=== PATIENT | female | born 1950 | race African-American/Black ===

== ENCOUNTER 2016-09-22 05:55 | Inpatient (IN) | payer MEDICARE ==
[~2016-09-22] VITALS: Ht 167.6 cm; Wt 84.2 kg
[2016-09-22] VITALS (17 sets, daily range): BP systolic 147–248; BP diastolic 95–137; PULSE 80–123; RESP 16–20; TEMP 98.2–100.4; O2SAT 94–99
[2016-09-22] MEDS ORDERED: ASPI81TA19 (06:07)
[2016-09-22] MEDS ORDERED: LABETALOL HCL 100 MG/20 ML VIAL IV PUSH ONE (06:15)
[2016-09-22] MEDS ORDERED: SODIUM CHLOR 0.9% 1000 ML INJ 1,000 ML IV SCH (06:15)
--- NOTE | 2016-09-22 06:26 | PD ---
HPI Chief Complaint: Chest Pain Time Seen by Provider: 06:03 Travel History International Travel<30 days: No Contact w/Intl Traveler<30days: No Traveled to known affect area: No History of Present Illness HPI 65-year-old female complains of chest pain. Patient states that the chest pain started 2 days ago. Patient states that the pain is pressure pain across the anterior chest with radiation to left arm. Patient states the pain is worse with lying down and exertion. Patient denies any fever chills coughing congestion. Patient denies any nausea or diaphoresis. Patient denies any palpitation. Patient has history of CAD status post CABG 3 about 8 years ago. Patient denies history hypertension, diabetes, dyslipidemia. Patient is a nonsmoker. Patient denies family history of heart disease. Patient take aspirin 325 mg daily. Patient states that she is does not have local physician or local rn practitioner. On a scale of 1-10 the pain is an 8. PFSH Past Medical History Chest Pain: Yes Diminished Hearing: No Tetanus Vaccination: Unknown Influenza Vaccination: No Past Surgical History Coronary Artery Bypass Graft: Yes ("TRIPLE BYPASS") Social History Alcohol Use: No Tobacco Use: No Substance Use: No Allergies-Medications (Allergen,Severity, Reaction): Coded Allergies: No Known Allergies (Unverified , 09/22/16) Reported Meds & Prescriptions Reported Meds & Active Scripts Active Reported Aspir-Low (Aspirin) 81 Mg Tabdr Review of Systems General / Constitutional: No: Fever Eyes: No: Visual changes HENT: No: Headaches Cardiovascular: Positive: Chest Pain or Discomfort Respiratory: No: Shortness of Breath Gastrointestinal: No: Abdominal Pain Genitourinary: No: Dysuria Musculoskeletal: No: Pain Skin: No Rash Neurologic: No: Weakness Psychiatric: No: Depression Endocrine: No: Polydipsia Hematologic/Lymphatic: No: Easy Bruising Physical Exam Narrative GENERAL: Well-nourished, well-developed patient. SKIN: Warm and dry. HEAD: Normocephalic. EYES: No scleral icterus. No injection or drainage. NECK: Supple, trachea midline. No JVD or lymphadenopathy. CARDIOVASCULAR: Regular rate and rhythm without murmurs, gallops, or rubs. RESPIRATORY: Breath sounds equal bilaterally. No accessory muscle use. GASTROINTESTINAL: Abdomen soft, non-tender, nondistended. MUSCULOSKELETAL: No cyanosis, or edema. BACK: Nontender without obvious deformity. No CVA tenderness. Neurologic exam normal. Data Data Last Documented VS Vital Signs Date Time Temp Pulse Resp B/P Pulse Ox O2 Delivery O2 Flow Rate FiO2 09/22/16 06:08 111 16 98 Room Air 09/22/16 05:57 98.2 248/137 Orders Electrocardiogram (09/22/16 06:13) Complete Blood Count With Diff (09/22/16 06:13) Comprehensive Metabolic Panel (09/22/16 06:13) Creatine Kinase (Cpk) (09/22/16 06:13) Troponin I (09/22/16 06:13) B-Type Natriuretic Peptide (09/22/16 06:13) Prothrombin Time / Inr (Pt) (09/22/16 06:13) Act Partial Throm Time (Ptt) (09/22/16 06:13) D-Dimer (09/22/16 06:13) Chest, Single Ap (09/22/16 06:13) Iv Access Insert/Monitor (09/22/16 06:13) Ecg Monitoring (09/22/16 06:13) Oximetry (09/22/16 06:13) Sodium Chlor 0.9% 1000 Ml Inj (Ns 1000 M (09/22/16 06:15) Labetalol Inj (Trandate Inj) (09/22/16 06:15) Aspirin (Aspirin) (09/22/16 06:30) Ct Pulmonary Angiogram (09/22/16:17) MDM Medical Decision Making Medical Screen Exam Complete: Yes Emergency Medical Condition: Yes Interpretation(s) EKG shows sinus rhythm nonspecific ST-T wave change. Differential Diagnosis Differential diagnosis including angina, NV, PE, pneumothorax, new onset hypertension, hypertensive urgency, hypertensive crisis. Narrative Course 65-year-old female chest pain. Patient also has elevated blood pressure. Labetalol 10 mg IV given. Aspirin 325 mg by mouth given. Neno Suarez MD Sep 22, 2016 06:26
[2016-09-22] MEDS ORDERED: ASPIRIN 325 MG TAB PO ONE (06:30)
[2016-09-22] MEDS ORDERED: hydrALAZINE HCL 20 MG/ML VIAL ONE ×2 (06:39→10:30)
[2016-09-22] MEDS ORDERED: hydrALAZINE HCL 20 MG/ML VIAL IV PUSH ONE (06:45)
[2016-09-22 06:52] LABS: AUTOMATED NEUTROPHIL # 2.8 TH/MM3 (1.8-7.7); BASOPHIL # 0.1 TH/MM3 (0-0.2); BASOPHIL % 1.4 % (0.0-2.0); EOSINOPHIL # 0.2 TH/MM3 (0-0.4); EOSINOPHIL % 4.5 % (0.0-4.0); HEMATOCRIT 38.7 % (35.0-46.0); HEMO FLAGS DIFF FINAL; LYMPH % 32.1 % (9.0-44.0); LYMPHOCYTE # 1.7 TH/MM3 (1.0-4.8); MEAN CELL VOLUME 90.1 FL (80.0-100.0); MEAN CORPUSCULAR HGB CONC 32.2 % (32.0-36.0); PLATELET COUNT 311 TH/MM3 (150-450); RED CELL DISTRIBUTION WIDTH 14.5 % (11.6-17.2); WHITE BLOOD COUNT 5.4 TH/MM3 (4.0-11.0)
[2016-09-22 07:06] LABS: APTT (PATIENT) 26.4 SEC (24.3-30.1); PROTHROMBIN TIME - PATIENT 10.9 SEC (9.8-11.6)
[2016-09-22 07:07] LABS: ALT (GPT) 102 U/L (10-53); ANION GAP 11 MEQ/L (5-15); AST (GOT) 51 U/L (15-37); BICARBONATE 23.2 MEQ/L (21.0-32.0); BLOOD UREA NITROGEN 21 MG/DL (7-18); CHLORIDE 107 MEQ/L (98-107); GLOMERULAR FILTRATION RATE 47 ML/MIN (>89); POTASSIUM 4.1 MEQ/L (3.5-5.1); SODIUM (NA) 141 MEQ/L (136-145)
[2016-09-22 07:11] LABS: ALKALINE PHOSPHATASE 115 U/L (45-117); CREATINE KINASE 160 U/L (26-192); TOTAL BILIRUBIN ADULT 0.7 MG/DL (0.2-1.0)
--- NOTE | 2016-09-22 07:14 | RADRPT ---
EXAM DATE/TIME: 09/22/2016 06:31 [facility] COMPARISON: No previous studies available for comparison. INDICATIONS : Chest pain. MEDICAL HISTORY : Hypertension. SURGICAL HISTORY : CABG. ENCOUNTER: Initial ACUITY: 1 day PAIN SCORE: 6/10 LOCATION: Bilateral chest FINDINGS: A single view of the chest demonstrates linear densities left midlung the left lung base. Moderate ca rdiomegaly with previous median sternotomy. Right lung clear.. The cardiomediastinal contours are un remarkable. Osseous structures are intact. CONCLUSION: 1. Left midlung and left basilar subsegmental atelectasis. 2. Cardiomegaly and previous median sternotomy. Wes Cherry MD on September 22, 2016 at 7:12 Board Certified Radiologist. This report was verified electronically.
[2016-09-22] MEDS ORDERED: SODIUM CHLORID 0.9% 500 ML INJ 500 ML IV ONE (07:30)
[2016-09-22] MEDS ORDERED: HEPARIN-D5W INJ 250 ML IV SCH (07:45)
[2016-09-22] MEDS ORDERED: HEPARIN SODIUM - IV 10,000 UNITS/10 ML VIAL IV ONE (07:45)
[2016-09-22] MEDS ORDERED: MORPHINE SULFATE 4 MG/ML INJ IV PUSH ONE ×2 (07:45→08:15)
[2016-09-22] MEDS: NITROGLYCERIN-DEXTROSE INJ 250 ML IV SCH (07:51)
--- NOTE | 2016-09-22 08:12 | PD ---
Physical Exam Date Seen by Provider: Sep 22, 2016 Time Seen by Provider: 08:12 Narrative 65-year-old female came to the emergency room with history of left-sided chest pain radiating up to her neck and shortness of breath. She was seen by the previous ER physician. EKG did not reveal any ST elevations. Blood test was ordered and patient was given morphine for pain. The sign out was to follow-up on the blood tests. There was a d-dimer ordered which was elevated and hence a CT pulmonary angiogram was ordered as well. Blood test results came back and patient had some renal insufficiency but more importantly her troponin was 9.59. I went back and reassessed the patient. At this point she was looking uncomfortable and said her chest pain was 15 out of 10. She had to stay sitting up because laying down and made her short of breath. Her blood pressure was 205 systolic. I ordered nitroglycerin drip, heparin bolus and drip and 4 mg of IV morphine. I also ordered a stat bedside echo and spoke with the diesel automotive technician Dr. Wlilis. A repeat EKG was ordered which showed old Q waves in the anterior leads with new inverted T waves in lateral leads. There was LVH. The bedside echocardiogram has an EF of 20-25%. The diesel automotive technician plans to take her to the [facility]. Patient's current pain is 0 out of 10 she said. She says her breathing feels better. I will cancel the CT pulmonary angiogram. Patient has been admitted to the hospitalist. Current blood pressure is 177/96. She's been admitted to CICU. Data Data Last Documented VS Orders Electrocardiogram (09/22/16 06:13) Complete Blood Count With Diff (09/22/16 06:13) Comprehensive Metabolic Panel (09/22/16 06:13) Creatine Kinase (Cpk) (09/22/16 06:13) Troponin I (09/22/16 06:13) B-Type Natriuretic Peptide (09/22/16 06:13) Prothrombin Time / Inr (Pt) (09/22/16 06:13) Act Partial Throm Time (Ptt) (09/22/16 06:13) D-Dimer (09/22/16 06:13) Chest, Single Ap (09/22/16 06:13) Iv Access Insert/Monitor (09/22/16 06:13) Ecg Monitoring (09/22/16 06:13) Oximetry (09/22/16 06:13) Sodium Chlor 0.9% 1000 Ml Inj (Ns 1000 M (09/22/16 06:15) Labetalol Inj (Trandate Inj) (09/22/16 06:15) Aspirin (Aspirin) (09/22/16 06:30) Hydralazine Inj (Apresoline Inj) (09/22/16 06:45) Hydralazine Inj (Apresoline Inj) (09/22/16 06:39) Sodium Chlorid 0.9% 500 Ml Inj (Ns 500 M (09/22/16 07:30) Nitroglycerin-Dextrose Inj (Nitroglyceri (09/22/16 07:45) Nitroglycerin-Dextrose Inj (Nitroglyceri (09/22/16 07:45) Heparin Infusion DURATE.Q1H (09/22/16 07:32) Heparin Inj (Heparin Inj) (09/22/16 07:45) Heparin-D5w Inj (Heparin-D5w Inj) (09/22/16 07:45) Act Partial Throm Time (Ptt) (09/22/16 14:32) Morphine Inj (Morphine Inj) (09/22/16 07:45) Echo 2d Comp W/Dopp(Routine) (09/22/16 ) Admit Order (Ed Use Only) (09/22/16 08:03) Labs MDM Supervised Visit with NUZHAT: No Interpretation(s) Second twelve-lead EKG was interpreted by me. Normal sinus rhythm, normal axis , LVH, old anterior SC, poor R-wave progression, new inverted T waves in V5 and V6. Heart rate of 85 bpm. Critical Care Narrative Aggregate critical care time was 60 minutes. Time to perform other separately billable procedures was not included in the critical care time. My time did not include minutes spent treating any other patients simultaneously or on activities that did not directly contribute to the patient's treatment. The services I provided to this patient were to treat and/or prevent clinically significant deterioration that could result in: Non-STEMI, hypertensive crisis, nitro drip, heparin drip I provided critical care services requiring my management, as noted below: Chart data review, documentation time, medication orders and management, vital sign assessments/reviewing monitor data, ordering and reviewing lab tests, ordering and interpreting/reviewing x-rays and diagnostic studies, care of the patient and discussion of the patient with the admitting physicians. Physician Communication Physician Communication Dr. Willis Diagnosis Primary Impression: Non-STEMI (non-ST elevated myocardial infarction) Additional Impressions: Hypertensive emergency Respiratory distress Admitting Information Admitting Physician Requests: Admit Scripts Lisinopril 10 Mg Tab10 Mg PO DAILY #30 TAB Ref 0 Prov:Ganesh Weinberg MD 09/26/16 Levofloxacin (Levaquin)500 Mg Htq622 Mg PO Q48H #4 TAB Ref 0 Prov:Ganesh Weinberg MD 09/25/16 Ticagrelor (Brilinta)90 Mg Tab90 Mg PO BID #62 TAB Ref 1 Prov:Ganesh Weinberg MD 09/25/16 Furosemide 20 Mg Tab20 Mg PO DAILY #30 TAB Prov:Ganesh Weinberg MD 09/25/16 Carvedilol (Coreg)12.5 Mg Tab12.5 Mg PO Q12HR #62 TAB Prov:Ganesh Weinberg MD 09/25/16 [Aspirin] (Aspirin Chew)81 MG CHEW No Conflict Check81 Mg CHEW DAILY #30 TAB.CHEW Prov:Ganesh Weinberg MD 09/25/16 Amlodipine (Norvasc)10 Mg Tab10 Mg PO DAILY #30 TAB Prov:Ganesh Weinberg MD 09/25/16 Giovanni Ramirez MD Sep 22, 2016 08:12 Lymphocytes # (Auto) 1.7 TH/MM3 Monocytes # (Auto) 0.5 TH/MM3 Eosinophils # (Auto) 0.2 TH/MM3 Basophils # (Auto) 0.1 TH/MM3 CBC Comment DIFF FINAL Differential Comment Prothrombin Time 10.9 SEC Prothromb Time International 1.0 RATIO Ratio Activated Partial 26.4 SEC Thromboplast Time D-Dimer Quantitative (PE/DVT) 1.48 MG/L FEU Sodium Level 141 MEQ/L Potassium Level 4.1 MEQ/L Chloride Level 107 MEQ/L Carbon Dioxide Level 23.2 MEQ/L Anion Gap 11 MEQ/L Blood Urea Nitrogen 21 MG/DL Creatinine 1.37 MG/DL Estimat Glomerular Filtration 47 ML/MIN Rate Random Glucose 165 MG/DL Calcium Level 9.4 MG/DL Total Bilirubin 0.7 MG/DL Aspartate Amino Transf 51 U/L (AST/SGOT) Alanine Aminotransferase 102 U/L (ALT/SGPT) Alkaline Phosphatase 115 U/L Total Creatine Kinase 160 U/L Troponin I 9.59 NG/ML B-Type Natriuretic Peptide 1430 PG/ML Total Protein 7.6 GM/DL Albumin 3.8 GM/DL [facility] Supervised Visit with NUZHAT: No Interpretation(s) Second twelve-lead EKG was interpreted by me. Normal sinus rhythm, normal axis , LVH, old anterior SC, poor R-wave progression, new inverted T waves in V5 and V6. Heart rate of 85 bpm. Critical Care Narrative Aggregate critical care time was 60 minutes. Time to perform other separately billable procedures was not included in the critical care time. My time did not include minutes spent treating any other patients simultaneously or on activities that did not directly contribute to the patient's treatment. The services I provided to this patient were to treat and/or prevent clinically significant deterioration that could result in: Non-STEMI, hypertensive crisis, nitro drip, heparin drip I provided critical care services requiring my management, as noted below: Chart data review, documentation time, medication orders and management, vital sign assessments/reviewing monitor data, ordering and reviewing lab tests, ordering and interpreting/reviewing x-rays and diagnostic studies, care of the patient and discussion of the patient with the admitting physicians. Physician Communication Physician Communication Dr. Willis Diagnosis Primary Impression: Non-STEMI (non-ST elevated myocardial infarction) Additional Impressions: Hypertensive emergency Respiratory distress Admitting Information Admitting Physician Requests: it Giovanni Ramirez MD Sep 22, 2016 08:12
[2016-09-22] MEDS: LISINOPRIL 5 MG TAB PO SCH (09:30)
[2016-09-22] MEDS ORDERED: ACETAMINOPHEN 325 MG TAB PO PRN (09:30)
[2016-09-22] MEDS ORDERED: ALPRAZolam 0.25 MG TAB PO PRN (09:30)
[2016-09-22] MEDS ORDERED: MORPHINE SULFATE 4 MG/ML INJ IV PRN (09:30)
[2016-09-22] MEDS ORDERED: DOCUSATE SODIUM 100 MG CAP PO PRN (09:30)
[2016-09-22] MEDS ORDERED: SODIUM CHLORIDE 0.9% FLUSH 10 ML FLUSH IV FLUSH PRN ×2 (09:30→12:15)
[2016-09-22] MEDS ORDERED: ONDANSETRON HCL 4 MG/2 ML VIAL IV PRN ×2 (09:30→12:15)
[2016-09-22] MEDS ORDERED: CARVEDILOL 3.125 MG TAB PO SCH (09:30)
--- NOTE | 2016-09-22 09:38 | EC ---
Study Study Date:09/22/2016 STUDY CONCLUSIONS SUMMARY - Left ventricle: The cavity size was normal. Wall thickness was increased in a pattern of moderate LVH. There was concentric hypertrophy. Systolic function was severely reduced. The estimated ejection fraction was in the range of 30% to 35%. Diffuse hypokinesis. Akinesis of the anteroseptal myocardium; consistent with infarction. Features are consistent with a pseudonormal left ventricular filling pattern, with concomitant abnormal relaxation and increased filling pressure (grade 2 diastolic dysfunction). - Aortic valve: Mild regurgitation. - Mitral valve: Moderate regurgitation. - Tricuspid valve: Moderate-severe regurgitation. - Pulmonary arteries: PA peak pressure: 43mm Hg (S). If LV function is below 40, please consider prescribing an ACEI or ARB or document rationale for non-use. PROCEDURE DATA STUDY STATUS: Elective. Procedure: Transthoracic echocardiography. Image quality was good. Scanning was performed from the parasternal, apical, and subcostal acoustic windows. Study completion: The patient tolerated the procedure well. Transthoracic echocardiography. M-mode, complete 2D, complete spectral Doppler, and color Doppler. Height: Height: 66in. Weight: Weight: 197.6lb. Body mass index: BMI: 32kg/m^2. Body surface area: BSA: 1.99m^2. Patient status: Inpatient. CARDIAC ANATOMY LEFT VENTRICLE: The cavity size was normal. Wall thickness was increased in a pattern of moderate LVH. There was concentric hypertrophy. Systolic function was severely reduced. The estimated ejection fraction was in the range of 30% to 35%. Diffuse hypokinesis. Regional wall motion abnormalities: Akinesis of the anteroseptal myocardium; consistent with infarction. Features are consistent with a pseudonormal left ventricular filling pattern, with concomitant abnormal relaxation and increased filling pressure (grade 2 diastolic dysfunction). AORTIC VALVE: Trileaflet. Doppler: There was no stenosis. Mild regurgitation. Valve area: 2.02cm^2 (Vmax). Indexed valve area: 1.02cm^2/m^2 (Vmax). MITRAL VALVE: The valve appears to be grossly normal. Doppler: There was no evidence for stenosis. Moderate regurgitation. Valve area by pressure half-time: 4.78cm^2. Indexed valve area by pressure half-time: 2.4cm^2/m^2. Peak gradient: 5mm Hg (D). LEFT ATRIUM: The atrium was mildly to moderately dilated. RIGHT VENTRICLE: The cavity size was normal. Systolic function was normal. PULMONIC VALVE: Not well visualized. Doppler: There was no evidence for stenosis. No significant regurgitation. TRICUSPID VALVE: The valve appears to be grossly normal. Doppler: There was no evidence for stenosis. Moderate-severe regurgitation. Peak gradient: 0mm Hg (D). RIGHT ATRIUM: The atrium was mildly dilated. PERICARDIUM: There was no pericardial effusion. Patient weight: 197.6lb _Ejection fraction:_ 65-75% _Fractional shortening:_ 32% up to 5Kg 5-11.5Kg 11.6-22.9Kg 23-45Kg 45-57Kg Aortic Root 7-13 <17 13-22 17-27 17-27 LA diam 6-13 <23 24-38 33-47 37-40 RVID 10-17 7-15 7-15 7-18 8-17 LVIDd 12-22 <32 24-38 33-47 37-40 LVPW 2-4 3-6 5-7 6-8 7-8 IVS 2-4 3-6 5-7 6-8 7-8 BASIC MEASUREMENTS ADULT NORMAL Left ventricle LV internal dimension, ED, chordal 43.7 mm 43-52 level, PLAX LV internal dimension, ES, chordal 36.8 mm 23-38 level, PLAX Fractional shortening, chordal level, *16 % >29 PLAX LV posterior wall thickness, ED 16.9 mm IVS/LVPW ratio, ED 0.99 <1.3 Volume, ED, MOD, 1-plane 97 ml Volume, ES, MOD, 1-plane 65 ml Ejection fraction, MOD, 1-plane 33 % Stroke volume, MOD, 1-plane 32 ml Volume index, ED, MOD, 1-plane 49 ml/m^2 Volume index, ES, MOD, 1-plane 33 ml/m^2 Stroke index, MOD, 1-plane 16.1 ml/m^2 Ventricular septum Septal thickness, ED 16.7 mm Aortic valve Leaflet separation 18 mm 15-26 Aorta Root diameter, ED 28 mm Left atrium Anterior-posterior dimension 45 mm Anterior-posterior dimension index *2.26 cm/m^2 <2.2 Right ventricle RV internal dimension, ED, PLAX 32.3 mm 19-38 BASIC MEASUREMENTS ADULT NORMAL Aortic valve Leaflet separation 18 mm 15-26 Aorta Root diameter, ED 28 mm 20-37 DOPPLER MEASUREMENTS ADULT NORMAL Main pulmonary artery Pressure, S *43 mm Hg =30 Aortic valve Peak velocity, S 139 cm/s Valve area, Vmax 2.02 cm^2 Valve area index, Vmax 1.02 cm^2/m^2 Regurgitant velocity, ED 445 cm/s Regurgitant deceleration 4550 cm/s^2 Regurgitant pressure half-time 287 ms Regurgitant gradient, ED 79 mm Hg Mitral valve Peak E-wave velocity 117 cm/s Peak A-wave velocity 73.1 cm/s Pressure half-time 46 ms Peak gradient, D 5 mm Hg Peak E/A ratio 1.6 Valve area, pressure half-time 4.78 cm^2 Valve area index, pressure half-time 2.4 cm^2/m^2 Tricuspid valve Peak gradient, D 0 mm Hg Maximal inflow velocity 13.6 cm/s Regurgitant peak velocity 238 cm/s Peak RV-RA gradient, S 23 mm Hg Maximal regurgitant velocity 238 cm/s Systemic veins Estimated CVP 20 mm Hg Right ventricle RV pressure, S *43 mm Hg <30 Pulmonic valve Peak velocity, S 59.7 cm/s LEGEND: Mean values are shown as u=mean value. Asterisk (*) gonzalez values outside specified normal range. Prepared and signed by Yohan Willis [id number]
[2016-09-22] MEDS ORDERED: LABETALOL HCL 100 MG/20 ML VIAL IVP ONE (09:45)
[2016-09-22] MEDS ORDERED: ONDANSETRON HCL 4 MG/2 ML VIAL ONE (09:46)
[2016-09-22] MEDS ORDERED: HEPARIN-NS/PF INJ 500 ML ONE (09:48)
--- NOTE | 2016-09-22 09:50 | MB ---
cc: ARCHIE DICKINSON DO DATE OF CONSULTATION September 22, 2016 REASON FOR CONSULTATION NSTEMI. HISTORY OF PRESENT ILLNESS Antonieta Noble is a pleasant 65-year-old female who presents to [facility] Emergency Room on September 22, 2016, due to chest pain and shortness of breath. She states that around two days ago she started having some chest pain and shortness of breath. The shortness of breath seemed to come on with laying flat and then she would get chest pain. She went about her normal day working without chest pain. Then last night she started noticing that her shortness of breath was becoming more significant. With this she started getting pressure across her chest that radiated to her left arm and neck. She finally told her roommate this morning that she needed to go to the emergency room. On arrival she was found to have an elevated troponin. Chest pain was "15 out of 10". Her blood pressure at that time was 248/137. She was placed on a nitro drip, heparin drip and given morphine IV. After being placed on nitro, blood pressure decreased to 170/90 and she is currently chest pain-free. She also feels that her shortness of breath has decreased. The patient previously had bypass surgery around eight years ago at [facility]. She was never told to follow up with Cardiology. She has not followed up with a primary care physician at all. She states that her blood pressure has been elevated for sometime, but she felt that this did not need to be treated as she is asymptomatic from it. PAST MEDICAL HISTORY 1. Coronary artery disease. 2. Hypertension. PAST SURGICAL HISTORY Coronary artery bypass grafting x 3 (around 2008 at [facility]) with unknown anatomy. ALLERGIES No known drug allergies. MEDICATIONS Aspirin 81 mg daily. FAMILY HISTORY Denies premature coronary artery disease or sudden cardiac within the family. SOCIAL HISTORY Denies tobacco, alcohol or drug abuse. She works cleaning office buildings. REVIEW OF SYSTEMS Fourteen systems were reviewed including osteopathic pertinent positives and negatives above, otherwise negative. PHYSICAL EXAMINATION VITAL SIGNS: Temperature 98.2, heart rate 85, blood pressure 177/96, on arrival 248/137, respirations 18, pulse ox 97% on room air. IN GENERAL: The patient appears in no acute distress, alert, awake and oriented x 3. Extraocular muscles intact. Mucous membranes moist. NECK: Supple. No JVD at 45 degrees. No carotid bruits heard bilaterally. Carotid upstroke is brisk in nature. HEART: Regular in rate and rhythm. Positive first and second heart sounds with a 1/6 holosystolic murmur noted at the apex. LUNGS: Decreased breath sounds bilaterally with minimal rales. ABDOMEN: Soft, nontender, nondistended. No organomegaly noted. EXTREMITIES: No clubbing, cyanosis or edema. Femoral and distal pulses intact bilaterally. NEUROLOGICALLY: No focal deficits. SKIN: Warm, dry and intact. OSTEOPATHIC EXAM: Mild lordosis. No kyphoscoliosis or scoliosis or paraspinal tender points. LABORATORY WORK Hemoglobin 12.5, hematocrit 38.7, platelets 311. D-dimer 1.48. Potassium 4.1, BUN 21, creatinine 1.37, AST 51, ALT 102, troponin 9.59. BNP 1430. ELECTROCARDIOGRAM (September 22, 2016, at 06:08) Sinus tachycardia at 190 per minute, left atrial enlargement, LVH with secondary ST-T wave changes. IMPRESSION 1. NSTEMI. 2. Chest pain concerning for coronary insufficiency. 3. Coronary artery disease with a history of coronary artery bypass grafting x 3 (around [address] [facility]) with unknown anatomy. 4. Shortness of breath due to acute congestive heart failure. 5. Elevated creatinine, unknown baseline, acute kidney injury versus chronic kidney disease. 6. Elevated D-dimer 7. Elevated liver enzymes, most likely due to liver congestion from heart failure. 8. Emergent hypertension with a blood pressure of 248/137 on arrival. RECOMMENDATIONS 1. Antonieta appears to be having an acute NSTEMI with chest pain consistent with coronary insufficiency. Because of this, she will be taken to the cardiac catheterization lab urgently. She understands the risks, benefits and alternatives and consents as such. 2. We will continue her on a heparin drip as well as a nitroglycerin drip. 3. Postprocedure she will need to have better blood pressure can control. 4. Liver enzymes were most likely elevated due to liver congestion from heart failure. 5. A STAT echo was done preliminarily. Her ejection fraction looks 25-30%, moderate MR, moderate TR, trace AR. 6. D-dimer is mildly elevated. We will hold off on CT angiogram to rule out pulmonary embolus as the chest pain appears consistent with coronary insufficiency. STAT echo does not show dilatation of the right ventricle or decreased function. 7. Post-hospitalization, the patient will need to follow up with a primary care physician as well as Cardiology. 8. We will further risk stratify the patient by checking hemoglobin A1c. 9. Further recommendations will be made based on the hospital course. Thank you for allowing me to see Antonieta Noble. If there are any questions, please do not hesitate to call. Archie Dickinson DO VGP/SSB /9:12 AM /9:35 AM
[2016-09-22] MEDS ORDERED: MIDAZOLAM HCL 2 MG/2 ML VIAL ONE (09:55)
[2016-09-22] MEDS ORDERED: NITROGLYCERIN INJ 5 ML ONE (09:55)
[2016-09-22] MEDS ORDERED: HEPARIN SODIUM - IV 10,000 UNITS/10 ML VIAL ONE (09:55)
[2016-09-22] MEDS ORDERED: VERAPAMIL HCL 5 MG/2 ML VIAL ONE (09:55)
--- NOTE | 2016-09-22 10:13 | HHI.HP ---
HPI Service [facility] Hospitalists Primary Care Physician No Primary Care Physician Admission Diagnosis chest pain, non-STEMI Diagnoses: Chief Complaint: Chest pain, shortness of breath Travel History International Travel<30 Days: No Contact w/Intl Traveler <30 Da: No Traveled to Known Affected Are: No History of Present Illness This is a 65-year-old female with past medical history significant for CAD and a prior CABG approximately 9 years ago who presents to [facility] complaining of chest pain or shortness of breath. The patient states that this past Monday she started having some episodic and intermittent chest pain associated with shortness of breath which was self-limited. Next a she had some episodes of chest pain which lasted for 15-20 minutes 0 insurance of breath which also subsided on its own. The patient states however that this morning around 4 AM she started having chest pain localized over the left chest , nonradiating, associated with shortness of breath which did not go away somewhat she decided to present to the hospital. The patient denies any diaphoresis, dizziness, palpitations, abdominal pain, nausea. Patient states the pain was improved after she was given nitroglycerin. Moment obtained. The activity leader shows sinus rhythm and blood pressure is elevated with systolic blood pressures in the 190s. Patient is still complaining of mild chest pain and shortness of breath. Review of Systems As per history of present illness, other systems reviewed by me and negative Past Family Social History Past Medical History History of CAD with CABG 9 years ago Past Surgical History CABG, denies any other major surgeries Reported Medications Aspir-Low (Aspirin) 81 Mg Tabdr Allergies: Coded Allergies: No Known Allergies (Unverified , 09/22/16) Active Ordered Medications Current Medications Medications (Trade) Dose Ordered Sig/Belen Route Start Time Stop Time Status Last Admin Sodium Chloride 1,000 ml @ 70 mls/hr [id number] IV 09/22/16 06:15 09/22/16 06:27 Nitroglycerin/ Dextrose 250 ml @ 0 mls/hr TITRATE IV 09/22/16 07:45 09/22/16 07:51 Nitroglycerin/ Dextrose 250 ml @ 0 mls/hr TITRATE IV 09/22/16 07:45 (Heparin-D5W Inj) 250 ml @ 0 mls/hr TITRATE IV 09/22/16 07:45 09/22/16 07:58 (NS Flush) 2 ml BID IV FLUSH 09/22/16 21:00 (NS Flush) 2 ml UNSCH PRN IV FLUSH 09/22/16 09:30 (Ecotrin Ec) 325 mg DAILY PO 09/23/16 09:00 (Morphine Inj) 2 mg Q30M PRN IV 09/22/16 09:30 (Tylenol) 650 mg Q6H PRN PO 09/22/16 09:30 (Colace) 100 mg BID PRN PO 09/22/16 09:30 (Xanax) 0.25 mg Q8H PRN PO 09/22/16 09:30 (Zofran Inj) 4 mg Q6H PRN IV 09/22/16 09:30 (Coreg) 3.125 mg BID PO 09/22/16 09:30 UNV (Prinivil) 5 mg DAILY PO 09/22/16 09:30 UNV Labetalol HCl 20 mg 20 mg BOLUS ONCE IVP 09/22/16 09:45 09/22/16 09:46 UNV (Trandate Inj/NS Inj) 250 ml @ 0 mls/hr TITRATE IV 09/22/16 09:45 UNV Family History Patient denies family history of early CAD, hypertension or diabetes mellitus. Social History The patient is a former smoker, states she quit one year ago. She used to smoke 1 pack per month. The patient denies any alcohol intake. The patient denies any illicit drug use. The patient is a and has 4 children. 3 of them live in [place] and one lives in [place]. Physical Exam Vital Signs Vital Signs Date Time Temp Pulse Resp B/P Pulse Ox O2 Delivery O2 Flow Rate FiO2 09/22/16 09:00 86 18 204/95 98 Room Air 09/22/16 08:00 85 18 177/96 97 Room Air 09/22/16 07:56 18 09/22/16 07:30 85 18 191/115 97 Room Air 09/22/16 06:26 89 16 213/117 96 Room Air 09/22/16 06:25 20 96 Room Air 09/22/16 06:08 111 16 98 Room Air 09/22/16 05:57 98.2 123 16 248/137 99 Room Air Physical Exam GENERAL: This is a well-nourished, well-developed patient, in mild distress due to pain and shortness of breath. SKIN: No rashes, ecchymoses or lesions. Cool and dry. HEAD: Atraumatic. Normocephalic. No temporal or scalp tenderness. EYES: Pupils equal round and reactive. Extraocular motions intact. No scleral icterus. No injection or drainage. ENT: Nose without bleeding, purulent drainage or septal hematoma. Throat without erythema, tonsillar hypertrophy or exudate. Uvula midline. Airway patent. NECK: Trachea midline. No JVD or lymphadenopathy. Supple, nontender, no meningeal signs. CARDIOVASCULAR: Regular rate and rhythm without murmurs, gallops, or rubs. RESPIRATORY: Clear to auscultation. Breath sounds equal bilaterally. No wheezes , rales, or rhonchi. GASTROINTESTINAL: Abdomen soft, non-tender, nondistended. No hepato-splenomegaly , or palpable masses. No guarding. Obese. MUSCULOSKELETAL: Extremities without clubbing, cyanosis, edema +1 in lower extremities. No joint tenderness, effusion, or edema noted. No calf tenderness. Negative Homans sign bilaterally. NEUROLOGICAL: Awake and alert. Cranial nerves II through XII intact. Motor and sensory grossly within normal limits. Five out of 5 muscle strength in all muscle groups. Normal speech. Laboratory Laboratory Tests Test 09/22/16 06:20 White Blood Count 5.4 Red Blood Count 4.30 Hemoglobin 12.5 Hematocrit 38.7 Mean Corpuscular Volume 90.1 Mean Corpuscular Hemoglobin 29.0 Mean Corpuscular Hemoglobin 32.2 Concent Red Cell Distribution Width 14.5 Platelet Count 311 Mean Platelet Volume 7.5 Neutrophils (%) (Auto) 52.0 Lymphocytes (%) (Auto) 32.1 Monocytes (%) (Auto) 10.0 Eosinophils (%) (Auto) 4.5 Basophils (%) (Auto) 1.4 Neutrophils # (Auto) 2.8 Lymphocytes # (Auto) 1.7 Monocytes # (Auto) 0.5 Eosinophils # (Auto) 0.2 Basophils # (Auto) 0.1 CBC Comment DIFF FINAL Differential Comment Prothrombin Time 10.9 Prothromb Time International 1.0 Ratio Activated Partial 26.4 Thromboplast Time D-Dimer Quantitative (PE/DVT) 1.48 Sodium Level 141 Potassium Level 4.1 Chloride Level 107 Carbon Dioxide Level 23.2 Anion Gap 11 Blood Urea Nitrogen 21 Creatinine 1.37 Estimat Glomerular Filtration 47 Rate Random Glucose 165 Calcium Level 9.4 Total Bilirubin 0.7 Aspartate Amino Transf 51 (AST/SGOT) Alanine Aminotransferase 102 (ALT/SGPT) Alkaline Phosphatase 115 Total Creatine Kinase 160 Troponin I 9.59 B-Type Natriuretic Peptide 1430 Total Protein 7.6 Albumin 3.8 Result Diagram: 09/22/1661909/22/16619 Imaging Last Impressions Chest X-Ray 09/22/16612 Signed Impressions: Service Date/Time: August 06:31 - CONCLUSION: 1. Left midlung and left basilar subsegmental atelectasis. 2. Cardiomegaly and previous median sternotomy. Wes Cherry MD Assessment and Plan Problem List: (1) Non-STEMI (non-ST elevated myocardial infarction) ICD Code: I21.4 Status: Acute Plan: CC 5-year-old female who presents to [facility] complaining of chest pain or short of breath. Cardiac enzymes found to be elevated with a troponin of 9.59. EKG on presentation to the emergency department showed specific tachycardia with a ventricular rate of 109 bpm, signs consistent with left atrial enlargement, septal DC and ST depressions in leads V5 and V6. No clear ST elevation. Chest x-ray as described above and reviewed by me showed left midlung and left basilar subsegmental atelectasis. Cardiomegaly and previous median sternotomy. Admit the patient to the cardiac intermediate care unit Continue IV heparin and nitroglycerin started by the emergency department physician. Start the patient on lisinopril and carvedilol Cardiology consulted by ED physician. CTA rule out PE still pending (2) Hypertensive emergency ICD Code: I16.1 Status: Acute Plan: Likely contributed to symptoms. I will start the patient on labetalol drip. (3) SOB (shortness of breath) ICD Code: R06.02 Status: Acute Plan: Chest x-ray as mentioned above. CTA rule out PE still pending. (4) Leukocytosis ICD Code: D72.829 Status: Acute Plan: Likely related to stress. Continue to monitor CBC with differential. Chest x-ray as mentioned above, no clear infiltrate. Check urinalysis (5) DAQUAN (acute kidney injury) ICD Code: N17.9 Status: Acute Plan: Creatinine elevated at 1.37 with a GFR of 47. No old creatinine to compare. Continue to monitor BUN/creatinine, avoid nephrotoxins (6) Hyperglycemia ICD Code: R73.9 Status: Acute Plan: Possibly elevated secondary to stress, will check hemoglobin A1c to rule out diabetes. (7) Transaminitis ICD Code: R74.0 Status: Acute Plan: There is mild elevation of transaminases. AST is 51 and AST is 102. I will check hepatitis profile and obtain a liver ultrasound. Assessment and Plan GI prophylaxis: We'll add PPI. DVT prophylaxis: The patient on heparin drip and will place on SCDs. Discussed Condition With Patient, ED physician. Physician Certification 2 Midnight Certification Type: Admission for Inpatient Services Order for Inpatient Services The services are ordered in accordance with Medicare regulations or non- Medicare payer requirements, as applicable. In the case of services not specified as inpatient-only, they are appropriately provided as inpatient services in accordance with the 2-midnight benchmark. Estimated LOS (days): 2 days is the estimated time the patient will need to remain in the hospital, assuming treatment plan goals are met and no additional complications. Post-Hospital Plan: Not yet determined Ganesh Weinberg MD Sep 22, 2016 10:13
[2016-09-22] MEDS ORDERED: LABETALOL INJ 500 MG in SODIUM CHLORIDE 0.9% INJ 150 ML IV SCH (11:00)
[2016-09-22] MEDS ORDERED: IOHEXOL 350 MG/ML 100 ML BTL (for Cath Lab) OTHER ONE ×2 (12:00→13:42)
[2016-09-22] MEDS ORDERED: ATROPINE SULFATE 1 MG/ML VIAL IV PRN (12:15)
[2016-09-22] MEDS ORDERED: TICAGRELOR 90 MG TAB PO ONE (12:15)
[2016-09-22] MEDS ORDERED: MISC INFORMATION XX ONE (12:15)
[2016-09-22] MEDS ORDERED: SODIUM CHLOR 0.9% 250 ML INJ 250 ML IV PRN (12:15)
[2016-09-22] MEDS: CARVEDILOL 6.25 MG TAB PO SCH ×2 (14:19→20:02)
--- NOTE | 2016-09-22 14:29 | EKG ---
Date Performed: 09/22/2016 Time Performed: 06:08:05 PTAGE: 65 years EKG: SINUS TACHYCARDIA LEFT ATRIAL ENLARGEMENT SEPTAL MYOCARDIAL INFARCTION Diffuse nonspecific ST changes ABNORMAL ECG NO PREVIOUS TRACING DOCTOR: Jered Lopez Interpretating Date/Time 09/22/2016 14:28:12
--- NOTE | 2016-09-22 14:30 | EKG ---
Date Performed: 09/22/2016 Time Performed: 07:40:45 PTAGE: 65 years EKG: Sinus rhythm POSSIBLE LEFT ATRIAL ENLARGEMENT LEFT VENTRICULAR HYPERTROPHY AND ST-T CHANGE POSSIBLE SEPTAL MYOCAR DIAL INFARCTION Fairly diffuse nonspecific ST changes are slightly more prominent likely due to LVH b ut consider ischemia ABNORMAL ECG NO PREVIOUS TRACING DOCTOR: Jered Lopez Interpretating Date/Time 09/22/2016 14:29:18
[2016-09-22] MEDS ORDERED: LABETALOL HCL 100 MG/20 ML VIAL IV ONE (16:15)
[2016-09-22] MEDS: SODIUM CHLORIDE 0.9% FLUSH 10 ML FLUSH IV FLUSH SCH (20:03)
[2016-09-22] MEDS: TICAGRELOR 90 MG TAB PO SCH (20:03)
[2016-09-22] MEDS: LABETALOL HCL 100 MG/20 ML VIAL IV PUSH PRN (20:04)
[2016-09-22] MEDS ORDERED: SODIUM CHLORIDE 0.9% FLUSH 10 ML FLUSH IV FLUSH SCH (21:00)
[2016-09-22 23:03] LABS: CREATINE KINASE 101 U/L (26-192)
[2016-09-22 23:06] LABS: APTT (PATIENT) 23.9 SEC (24.3-30.1)
[2016-09-22 23:27] LABS: CKMB 3.1 NG/ML (0.5-3.6)
[2016-09-23] VITALS (25 sets, daily range): BP systolic 137–163; BP diastolic 73–103; PULSE 83–98; RESP 16–20; TEMP 98.4–101; O2SAT 94–97
--- NOTE | 2016-09-23 00:21 | RADRPT ---
EXAM DATE/TIME: 09/22/2016 21:26 [place] COMPARISON: CHEST SINGLE AP, September 22, 2016, 6:31. INDICATIONS : Increased lab values. MEDICAL HISTORY : Hypertension. CAD. SURGICAL HISTORY : CABG. ENCOUNTER: Initial ACUITY: 1 day PAIN SCORE: 0/10 LOCATION: Bilateral upper quadrant MEASUREMENTS: LIVER: 15.6 cm length COMMON DUCT: 4 mm RIGHT KIDNEY: 10.3 x 4.6 x 4.2 cm SPLEEN: 8.1 cm length FINDINGS: LIVER: Normal echotexture without focal lesion or ductal dilatation. The hepatic veins and IVC are engorged. COMMON DUCT: No intraluminal mass or stone visualized. GALLBLADDER: Small mobile gallstone measuring 3 mm. No gallbladder wall thickening or pericholecystic fluid. PANCREAS: The visualized portions are within normal limits. RIGHT KIDNEY: No hydronephrosis, stone or mass. SPLEEN: No focal lesion. Small right effusion. CONCLUSION: 1. Small right pleural effusion. 2. Engorged hepatic veins and IVC suggesting a component of right-sided heart failure. 3. Tiny solitary gallstone. No ultrasound findings to suggest acute cholecystitis. Paddy De Luna Jr., MD on September 23, 2016 at 0:16 Board Certified Radiologist. This report was verified electronically.
[2016-09-23] MEDS: NITROGLYCERIN-DEXTROSE INJ 250 ML IV SCH ×2 (00:31→07:35)
[2016-09-23 04:10] LABS: AUTOMATED NEUTROPHIL # 5.8 TH/MM3 (1.8-7.7); BASOPHIL % 0.5 % (0.0-2.0); EOSINOPHIL # 0.1 TH/MM3 (0-0.4); EOSINOPHIL % 0.9 % (0.0-4.0); HEMATOCRIT 27.8 % (35.0-46.0); HEMO FLAGS DIFF FINAL; LYMPH % 13.6 % (9.0-44.0); LYMPHOCYTE # 1.1 TH/MM3 (1.0-4.8); MEAN CELL VOLUME 88.8 FL (80.0-100.0); MEAN CORPUSCULAR HGB CONC 33.8 % (32.0-36.0); MONO % 10.8 % (0.0-8.0); NEUT % 74.2 % (16.0-70.0); PLATELET COUNT 251 TH/MM3 (150-450); RED BLOOD COUNT 3.13 MIL/MM3 (4.00-5.30); RED CELL DISTRIBUTION WIDTH 14.4 % (11.6-17.2); WHITE BLOOD COUNT 7.9 TH/MM3 (4.0-11.0)
[2016-09-23 04:52] LABS: BICARBONATE 23.8 MEQ/L (21.0-32.0); HDL CHOLESTEROL 39.2 MG/DL (40.0-60.0); POTASSIUM 3.9 MEQ/L (3.5-5.1)
--- NOTE | 2016-09-23 07:56 | MA ---
cc: YOHAN DICKINSON DO DATE 09/22/2016 PROCEDURE Left heart catheterization with bypass graft angiography, sedation, 90 minutes PREPROCEDURE DIAGNOSIS NSTEMI, chest pain, heart failure. POSTPROCEDURE DIAGNOSIS Multivessel coronary artery disease, patent 3/3 grafts, elevated LVEDP. MEDICATIONS 1. Versed 0.5 mg 2. Fentanyl 25 mcg 3. Hydralazine 10 mg 4. Zofran 4 mg CONTRAST USED 200 cc FLUOROSCOPY 43.2 minutes SEDATION 90 minutes PROCEDURAL SUMMARY Antonieta Noble is a pleasant 65-year-old female who presented with acute chest pain, heart failure and emergent hypertension. She was found to have an elevated troponin and was recommended cardiac catheterization. Risks, benefits and alternatives were explained to her and she consented as such. She was brought to the lab and prepped in the usual sterile fashion. I attempted to access her left radial artery, but was unable to due to the calcification of the vessel. At this point, I felt that we should switch to a femoral approach. The right femoral artery was accessed using a micropuncture and modified Seldinger technique. Placement of a 6-Filipino sheath which was then easily aspirated and flushed. Right femoral angiogram shows an occluded SFA at the ostial portion of it. A JR-4 was then advanced over a J-wire to the ascending aortic root, across the aortic valve into the left ventricle. Left ventricular pressure was measured at 178 systolically with an LVEDP of 35. This was then pulled back across the aortic valve showing no significant gradient of aortic stenosis. Selective angiography of the saphenous vein graft to obtuse marginal shows no significant disease throughout and appears to be a jump graft between the first and second obtuse marginals. Both obtuse marginals are significantly small and diffusely diseased. JR-4 was then used for a selective angiography of the right coronary artery which is significantly diseased throughout the proximal portion an occluded in the proximal to midportion with what appears to be a previous stent in the midportion. I was unable to find a vein graft to the right coronary artery, so the JR-4 was then advanced into the right subclavian to look for a possible KIMBERLY to the RCA. Unable to cannulated it, this was then exchanged for an IM catheter. Nonselective angiography of the KIMBERLY shows that it was not used for coronary bypass grafting. STAN catheter was then used for angiography of the PIRES to LAD which shows no significant disease throughout. The LAD at the touchdown does have a diffuse 50% disease throughout. STAN catheter was then exchanged for a multipurpose catheter which I attempted to define possible vein graft to the right coronary artery. I was unable to find any graft to the right coronary artery. IM catheter was then exchanged for a JL-4 which was used for selective angiography of the left coronary coquille system. The left main is a significantly small and diseased vessel which gives off an LAD and circumflex. Both the LAD and circumflex are extremely small vessels and are diffusely diseased throughout. Atnonieta felt that she had three bypass graft during her procedure and this is most likely the PIRES and saphenous vein graft which is a jump graft to the obtuse marginals. To make sure that there was no vein graft to the right coronary artery, a pigtail was then placed in the ascending aorta and a root shot was done. During this, only one vein graft was found which was the vein graft to the obtuse marginals. Of note, once the patient's blood pressure was decreased, she no longer had chest pain or shortness of breath. It was felt at this time that she had three patent grafts correlating with her original surgery and that the right coronary artery appeared chronic in nature. The pigtail catheter was then removed over a J-wire. Femoral sheath was sutured in with a plan to remove postprocedure. IMPRESSIONS 1. NSTEMI 2. Severe coquille coronary artery disease as above. 3. Patent three out of three grafts with a PIRES to LAD, SVG jump graft to first and second obtuse marginal. 4. Significantly elevated LVEDP of 35. RECOMMENDATIONS 1. It appears that Antonieta has three patent grafts to her LAD and two obtuse marginals. Her RCA appears chronically occluded in nature with mild collaterals from the left coronary artery. Her coquille arteries where the bypass grafts supply are significantly small and diffusely diseased. 2. None of her arteries appeared to be adequate for possible percutaneous intervention or repeat bypassing. 3. We will continue with medical management including extensive blood pressure control. 4. 2D echo will be ordered to look at her overall left ventricular function, cardiac structure and possible valvulopathies. 5. She has not had any followup with a primary care physician or master control operator, but does need this specifically with her blood pressure control. 6. She did get an excessive amount of dye and concern is for her current heart failure, she may need further diuresis throughout her hospital course depending on her creatinine in the morning. Thank you for allowing me to see Antonieta Noble. If there are any questions, please do not hesitate to call. Yohan Dickinson DO VGP/DJL /10:34 PM /7:40 AM
[2016-09-23] MEDS: SODIUM CHLORIDE 0.9% FLUSH 10 ML FLUSH IV FLUSH SCH ×2 (08:39→21:00)
[2016-09-23] MEDS: TICAGRELOR 90 MG TAB PO SCH ×2 (08:39→21:32)
[2016-09-23] MEDS: CARVEDILOL 6.25 MG TAB PO SCH (08:39)
[2016-09-23] MEDS: ASPIRIN 81 MG CHEW TAB CHEW SCH (08:39)
[2016-09-23] MEDS: LABETALOL HCL 100 MG/20 ML VIAL IV PUSH PRN (08:40)
[2016-09-23] MEDS ORDERED: ASPIRIN EC 325 MG TABEC PO SCH (09:00)
[2016-09-23] MEDS ORDERED: ISOSORBIDE MONONITRATE 30 MG TAB PO ONE (09:45)
--- NOTE | 2016-09-23 09:47 | PD.CARD.PN ---
Subjective Subjective Remarks No chest pain, no shortness of breath, able to lay flat Headache this morning, most likely secondary to nitro gtt Objective Medications Current Medications Medications (Trade) Dose Ordered Sig/Belen Route Start Time Stop Time Status Last Admin Nitroglycerin/ Dextrose 250 ml @ 0 mls/hr TITRATE IV 09/22/16 07:45 09/23/16 07:35 (Nitroglycerin-Dextrose Inj) 250 ml @ 0 mls/hr TITRATE IV 09/22/16 07:45 09/23/16 00:31 (Morphine Inj) 2 mg Q30M PRN IV 09/22/16 09:30 (Tylenol) 650 mg Q6H PRN PO 09/22/16 09:30 (Colace) 100 mg BID PRN PO 09/22/16 09:30 (Xanax) 0.25 mg Q8H PRN PO 09/22/16 09:30 Lisinopril 5 mg 5 mg DAILY PO 09/22/16 09:30 Hold (Trandate Inj/NS Inj) 250 ml @ 0 mls/hr TITRATE IV 09/22/16 11:00 (NS Flush) 2 ml BID IV FLUSH 09/22/16 21:00 09/22/16 20:03 (NS Flush) 2 ml UNSCH PRN IV FLUSH 09/22/16 12:15 Atropine Sulfate 0.5 mg 0.5 mg UNSCH PRN IV 09/22/16 12:15 (NS 250 ml Inj) 250 ml @ 500 mls/hr ONCE PRN IV 09/22/16 12:15 09/23/16 12:14 (Zofran Inj) 4 mg Q4H PRN IV 09/22/16 12:15 09/22/16 16:15 (Coreg) 6.25 mg Q12HR PO 09/22/16 13:00 09/23/16 08:39 (Aspirin Chew) 81 mg DAILY CHEW 09/23/16 09:00 09/23/16 08:39 (Brilinta) 90 mg BID PO 09/22/16 21:00 09/23/16 08:39 (Trandate Inj) 10 mg Q4H PRN IV PUSH 09/22/16 16:45 09/23/16 08:40 (Norvasc) 10 mg DAILY PO 09/23/16 09:45 UNV Vital Signs / I&O Vital Signs Date Time Temp Pulse Resp B/P Pulse Ox O2 Delivery O2 Flow Rate FiO2 09/23/16 08:12 96 21 09/23/16 08:00 97 09/23/16 08:00 98.6 93 18 163/85 97 09/23/16 06:00 93 09/23/16 05:00 92 09/23/16 04:37 100.4 95 18 149/92 94 09/23/16 04:34 94 09/23/16 03:34 92 09/23/16 02:00 90 09/23/16 01:00 89 09/23/16 00:00 99.5 98 18 150/82 95 09/23/16 00:00 95 09/22/16 23:35 98 09/22/16 22:00 93 09/22/16 21:00 96 09/22/16 20:00 100.4 97 18 147/97 97 09/22/16 20:00 95 09/22/16 19:00 98 09/22/16 18:00 90 09/22/16 17:00 86 09/22/16 16:00 98.2 80 16 162/99 94 09/22/16 16:00 92 09/22/16 15:00 94 09/22/16 14:17 98 Room Air 09/22/16 14:14 97 09/22/16 14:00 90 I/O 09/22/16 09/22/16 09/22/16 09/23/16 09/23/16 09/23/16 07:00 15:00 23:00 07:00 15:00 23:00 Intake Total 740 ml 990 ml Output Total 350 ml Balance 390 ml 990 ml Intake Oral 240 ml 600 ml IV Total 500 ml 390 ml Output Urine Total 350 ml # Voids 2 # Bowel Movements 0 0 Physical Exam GENERAL: NAD, AAOx3 SKIN: Warm and dry. HEAD: Atraumatic. Normocephalic. EYES: Pupils equal and round. No scleral icterus. No injection or drainage. ENT: No nasal bleeding or discharge. Mucous membranes pink and moist. NECK: Trachea midline. No JVD. CARDIOVASCULAR: Regular rate and rhythm. 2/6 holosystolic murmur at the apex RESPIRATORY: No accessory muscle use. Decreased breath sounds bilaterally GASTROINTESTINAL: Abdomen soft, non-tender, nondistended. Hepatic and splenic margins not palpable. MUSCULOSKELETAL: Extremities without clubbing, cyanosis, or edema. No obvious deformities. Right femoral no hematoma/bruit noted NEUROLOGICAL: Awake and alert. No obvious cranial nerve deficits. Motor grossly within normal limits. Five out of 5 muscle strength in the arms and legs. Normal speech. PSYCHIATRIC: Appropriate mood and affect; insight and judgment normal. Laboratory Laboratory Tests Test 09/22/16 09/23/16 22:15 03:54 Activated Partial 23.9 SEC Thromboplast Time Total Creatine Kinase 101 U/L 90 U/L Creatine Kinase MB 3.1 NG/ML Troponin I 7.46 NG/ML 6.47 NG/ML White Blood Count 7.9 TH/MM3 Red Blood Count 3.13 MIL/MM3 Hemoglobin 9.4 GM/DL Hematocrit 27.8 % Mean Corpuscular Volume 88.8 FL Mean Corpuscular Hemoglobin 30.0 PG Mean Corpuscular Hemoglobin 33.8 % Concent Red Cell Distribution Width 14.4 % Platelet Count 251 TH/MM3 Mean Platelet Volume 7.0 FL Neutrophils (%) (Auto) 74.2 % Lymphocytes (%) (Auto) 13.6 % Monocytes (%) (Auto) 10.8 % Eosinophils (%) (Auto) 0.9 % Basophils (%) (Auto) 0.5 % Neutrophils # (Auto) 5.8 TH/MM3 Lymphocytes # (Auto) 1.1 TH/MM3 Monocytes # (Auto) 0.9 TH/MM3 Eosinophils # (Auto) 0.1 TH/MM3 Basophils # (Auto) 0.0 TH/MM3 CBC Comment DIFF FINAL Differential Comment Sodium Level 140 MEQ/L Potassium Level 3.9 MEQ/L Chloride Level 107 MEQ/L Carbon Dioxide Level 23.8 MEQ/L Anion Gap 9 MEQ/L Blood Urea Nitrogen 23 MG/DL Creatinine 1.42 MG/DL Estimat Glomerular Filtration 45 ML/MIN Rate Random Glucose 159 MG/DL Calcium Level 8.2 MG/DL Triglycerides Level 63 MG/DL Cholesterol Level 139 MG/DL LDL Cholesterol 87 MG/DL HDL Cholesterol 39.2 MG/DL Cholesterol/HDL Ratio 3.54 RATIO Assessment and Plan Problem List: (1) Hypertensive emergency (2) Non-STEMI (non-ST elevated myocardial infarction) (3) Transaminitis (4) CKD (chronic kidney disease) (5) SOB (shortness of breath) (6) PAD (peripheral artery disease) (7) Systolic CHF (8) Ischemic cardiomyopathy Assessment and Plan 1) NSTEMI from hypertensive emergency, no targets for percutaneous intervention or repeat bypass, continue medical management 2) ASA/BB/Brilinta 3) Systolic heart failure secondary to ischemia/HTN, will diurese as possible 4) Coreg/FINA-I, will attempt to increase Coreg as possible... wean off Nitro drip 5) Will place on Imdur 30mg daily, if still hypertensive may benefit from a cardiomyopathy standpoint from combination with hydralazine 6) EF 30-35%, needs to be reassessed outpatient in 3 months for consideration of ICD therapy 7) Drop in Hgb secondary to procedure as well as fluids... will recheck later, if further drop may need to evaluate for retroperitoneal bleed Yohan Willis DO Sep 23, 2016 09:47
[2016-09-23] MEDS ORDERED: CARVEDILOL 3.125 MG TAB PO ONE (10:00)
[2016-09-23 10:26] LABS: INDIRECT BILIRUBIN 0.5 MG/DL (0.0-0.8); TOTAL BILIRUBIN ADULT 0.7 MG/DL (0.2-1.0)
[2016-09-23 14:00] LABS: HEMOGLOBIN A1a 1.3 %; HEMOGLOBIN A1b 1.2 %; HEMOGLOBIN Ao 81.4 %; HEMOGLOBIN F 1.3 %; HEMOGLOBIN LA1C 2.5 %; HEMOGLOBIN P3 4.7 %
[2016-09-23 14:32] LABS: AUTOMATED NEUTROPHIL # 5.4 TH/MM3 (1.8-7.7); BASOPHIL % 0.6 % (0.0-2.0); EOSINOPHIL # 0.1 TH/MM3 (0-0.4); EOSINOPHIL % 1.6 % (0.0-4.0); HEMATOCRIT 29.4 % (35.0-46.0); HEMO FLAGS DIFF FINAL; LYMPHOCYTE # 1.5 TH/MM3 (1.0-4.8); MEAN CELL VOLUME 91.2 FL (80.0-100.0); MEAN CORPUSCULAR HEMOGLOBIN 29.1 PG (27.0-34.0); MEAN CORPUSCULAR HGB CONC 31.9 % (32.0-36.0); MONO % 14.6 % (0.0-8.0); NEUT % 65.2 % (16.0-70.0); PLATELET COUNT 229 TH/MM3 (150-450); RED BLOOD COUNT 3.22 MIL/MM3 (4.00-5.30); RED CELL DISTRIBUTION WIDTH 14.5 % (11.6-17.2); WHITE BLOOD COUNT 8.3 TH/MM3 (4.0-11.0)
--- NOTE | 2016-09-23 16:15 | HHI.PR ---
Subjective Remarks Patient denies chest pain, shortness of breath is still present as per patient however it is much improved. Denies fevers or chills, denies cough Denies abdominal pain Creatinine noticed to be trending up Patient has had low-grade fever with a MAXIMUM TEMPERATURE of 100.4F 2 last night. Hemoglobin dropped BP noticed to be elevated earlier today. Objective Vitals Vital Signs Date Time Temp Pulse Resp B/P Pulse Ox O2 Delivery O2 Flow Rate FiO2 09/23/16 15:00 86 09/23/16 14:00 88 09/23/16 13:00 86 09/23/16 12:00 87 09/23/16 12:00 98.4 83 16 137/92 95 09/23/16 11:00 86 09/23/16 10:15 147/89 09/23/16 10:00 86 09/23/16 09:00 84 09/23/16 08:12 96 21 09/23/16 08:00 97 09/23/16 08:00 98.6 93 18 163/85 97 09/23/16 07:00 94 09/23/16 06:00 93 09/23/16 05:00 92 09/23/16 04:37 100.4 95 18 149/92 94 09/23/16 04:34 94 09/23/16 03:34 92 09/23/16 02:00 90 09/23/16 01:00 89 09/23/16 00:00 99.5 98 18 150/82 95 09/23/16 00:00 95 09/22/16 23:35 98 09/22/16 22:00 93 09/22/16 21:00 96 09/22/16 20:00 100.4 97 18 147/97 97 09/22/16 20:00 95 09/22/16 19:00 98 09/22/16 18:00 90 09/22/16 17:00 86 I/O 09/22/16 09/22/16 09/22/16 09/23/16 09/23/16 09/23/16 07:00 15:00 23:00 07:00 15:00 23:00 Intake Total 740 ml 990 ml Output Total 350 ml Balance 390 ml 990 ml Intake Oral 240 ml 600 ml IV Total 500 ml 390 ml Output Urine Total 350 ml # Voids 2 # Bowel Movements 0 0 Result Diagram: 09/23/16 1422 09/23/16 0354 Imaging Last Impressions Chest X-Ray 09/22/16 0613 Signed Impressions: Service Date/Time: August 06:31 - CONCLUSION: 1. Left midlung and left basilar subsegmental atelectasis. 2. Cardiomegaly and previous median sternotomy. Wes Cherry MD Liver Ultrasound 09/22/16 0000 Signed Impressions: Service Date/Time: August 21:26 - CONCLUSION: 1. Small right pleural effusion. 2. Engorged hepatic veins and IVC suggesting a component of right-sided heart failure. 3. Tiny solitary gallstone. No ultrasound findings to suggest acute cholecystitis. Paddy De Luna Jr., MD Objective Remarks GENERAL: This is a well-nourished, well-developed patient, not in acute distress. SKIN: No rashes, ecchymoses or lesions. Cool and dry. HEAD: Atraumatic. Normocephalic. No temporal or scalp tenderness. EYES: Pupils equal round and reactive. Extraocular motions intact. No scleral icterus. No injection or drainage. ENT: Nose without bleeding, purulent drainage or septal hematoma. Throat without erythema, tonsillar hypertrophy or exudate. Uvula midline. Airway patent. NECK: Trachea midline. No JVD or lymphadenopathy. Supple, nontender, no meningeal signs. CARDIOVASCULAR: Regular rate and rhythm without murmurs, gallops, or rubs. RESPIRATORY: Clear to auscultation. Breath sounds equal bilaterally. No wheezes , rales, or rhonchi. GASTROINTESTINAL: Abdomen soft, non-tender, nondistended. No hepato-splenomegaly , or palpable masses. No guarding. Obese. MUSCULOSKELETAL: Extremities without clubbing, cyanosis, edema +1 in lower extremities. No joint tenderness, effusion, or edema noted. No calf tenderness. Negative Homans sign bilaterally. NEUROLOGICAL: Awake and alert. Cranial nerves II through XII intact. Motor and sensory grossly within normal limits. Five out of 5 muscle strength in all muscle groups. Normal speech. Procedures That is post cardiac catheterization on 09/22/16. Medications and IVs Current Medications Medications (Trade) Dose Ordered Sig/Belen Route Start Time Stop Time Status Last Admin Nitroglycerin/ Dextrose 250 ml @ 0 mls/hr TITRATE IV 09/22/16 07:45 09/23/16 07:35 (Nitroglycerin-Dextrose Inj) 250 ml @ 0 mls/hr TITRATE IV 09/22/16 07:45 09/23/16 00:31 (Morphine Inj) 2 mg Q30M PRN IV 09/22/16 09:30 (Tylenol) 650 mg Q6H PRN PO 09/22/16 09:30 (Colace) 100 mg BID PRN PO 09/22/16 09:30 (Xanax) 0.25 mg Q8H PRN PO 09/22/16 09:30 Lisinopril 5 mg 5 mg DAILY PO 09/22/16 09:30 (Trandate Inj/NS Inj) 250 ml @ 0 mls/hr TITRATE IV 09/22/16 11:00 (NS Flush) 2 ml BID IV FLUSH 09/22/16 21:00 09/22/16 20:03 (NS Flush) 2 ml UNSCH PRN IV FLUSH 09/22/16 12:15 (Atropine Inj) 0.5 mg UNSCH PRN IV 09/22/16 12:15 (Zofran Inj) 4 mg Q4H PRN IV 09/22/16 12:15 09/22/16 16:15 (Aspirin Chew) 81 mg DAILY CHEW 09/23/16 09:00 09/23/16 08:39 (Brilinta) 90 mg BID PO 09/22/16 21:00 09/23/16 08:39 (Trandate Inj) 10 mg Q4H PRN IV PUSH 09/22/16 16:45 09/23/16 08:40 (Norvasc) 10 mg DAILY PO 09/23/16 09:45 09/23/16 10:16 (Imdur) 30 mg DAILY@07 PO 09/24/16 07:00 (Coreg) 12.5 mg Q12HR PO 09/23/16 21:00 Urinary Catheter: No Vascular Central Line Catheter: No A/P Problem List: (1) Non-STEMI (non-ST elevated myocardial infarction) ICD Code: I21.4 Status: Acute Plan: CC 5-year-old female who presents to [facility] [place] complaining of chest pain or short of breath. Cardiac enzymes found to be elevated with a troponin of 9.59. EKG on presentation to the emergency department showed specific tachycardia with a ventricular rate of 109 bpm, signs consistent with left atrial enlargement, septal OH and ST depressions in leads V5 and V6. No clear ST elevation. Chest x-ray as described above and reviewed by me showed left midlung and left basilar subsegmental atelectasis. Cardiomegaly and previous median sternotomy. Admit the patient to the cardiac intermediate care unit Continue IV heparin and nitroglycerin started by the emergency department physician. Patient was started on coreg and lisinopril. Cardiology consult appreciated. Patient underwent cardiac catheterization on 09/22/16 which showed severe yuhaaviatam CAD BCs, patent 3 out of 3 grafts with a PIRES to LAD, SVG jump graft to first and second obtuse marginal and significantly elevated left ventricular end -diastolic pressure of 35. The case was discussed with Dr. Willis over the phone. He recommends medical management since none of the yuhaaviatam chronically concluded yuhaaviat[place] vessels are amenable to stenting. Continue Continue Coreg, Brilinta, Hold jaimee given worsening DAQUAN. Will resume once creatinine better. (2) Hypertensive emergency ICD Code: I16.1 Status: Acute Plan: Blood pressure is better controlled. Carvedilol dose was increased to 12.5 mg by mouth twice a day. Patient was also started on Imdur 30 mg by mouth daily. Continue amlodipine 10 mg by mouth daily. I will hold lisinopril given worsening renal function. (3) SOB (shortness of breath) ICD Code: R06.02 Status: Acute Plan: Chest x-ray as mentioned above. CTA to rule out PE was initially ordered by ED physician and then canceled by her. Shortness of breath seems to improved. I will order a VQ scan given worsening creatinine. (4) DAQUAN (acute kidney injury) ICD Code: N17.9 Status: Acute Plan: Worsening acute kidney injury. Creatinine trending up from 1.37-1.42. Worsening creatinine likely secondary to contrast administration for cardiac catheterization. Possibly contrast-induced nephropathy. Continue to monitor BUN/creatinine, avoid nephrotoxins. (5) Hyperglycemia ICD Code: R73.9 Status: Acute Plan: Patient has new onset diabetes mellitus. Hemoglobin A1c is 7.3. I will start the patient on SSI with insulin NovoLog and Accu-Cheks. I will consult diabetes education. The patient most likely will need to be discharged home on oral metformin. (6) Transaminitis ICD Code: R74.0 Status: Acute Plan: Mild elevation of transaminases seen. AST is trending down and now normal from 51-25. AST down from 102-67. (7) Ischemic cardiomyopathy ICD Code: I25.5 Status: Acute Plan: 2-D echocardiogram obtained on 09/22/16 showed the left ventricle with increased work thickness in a pattern of moderate LVH. There was concentric hypertrophy. Systolic function was severely reduced. The estimated ejection fraction is in the range of 30-35%. Diffuse hypokinesis. Akinesis of the anteroseptal myocardium; consistent with infarction. Features consistent with a pseudo-normal left ventricular filling pattern with concomitant abnormal relaxation and increased filling pressure (grade 2 diastolic dysfunction). Moderate mitral regurgitation and marked to severe tricuspid regurgitation. Pulmonary arteries peak pressure 43 mmHg. Follow-up cardiology recommendations. Optimize medical management. (8) Acute on chronic combined systolic (congestive) and diastolic (congestive) heart failure ICD Code: I50.43 Status: Acute Plan: Patient presented with shortness of breath, liver ultrasound showed small right pleural effusion and engorged hepatic veins and IVC suggesting component of right-sided heart failure. The patient will need to be diuresed after the patient's creatinine started trending down. Follow-up cardiology recommendations. (9) Hepatitis C antibody positive in blood ICD Code: R76.8 Status: Acute Plan: I will check a hepatitis C viral load. (10) Low grade fever ICD Code: R50.9 Status: Acute Plan: Patient has low-grade fever with a MAXIMUM TEMPERATURE of 100.4. I will check urinalysis. Assessment and Plan GI prophylaxis: I will add a PPI. DVT prophylaxis: SCDs, no heparin or Lovenox given that the patient is on Brilinta. Ganesh Weinberg MD Sep 23, 2016 16:15
[2016-09-23 16:40] LABS: BLOOD, URINE NEG (NEG); COMMENT (UR) CULT NOT INDICATED; CULTURE IF INDICATED CULT NOT INDICATED; GLUCOSE,URINE NEG (NEG); KETONE, URINE NEG (NEG); MUCUS URINE FEW /lpf (OCC); NITRITE,URINE NEG (NEG); SQUAMOUS EPITHELIAL CELL URINE 2 /hpf (0-5); URINE COLOR YELLOW (YELLW/STRAW)
[2016-09-23] MEDS ORDERED: DEXTROSE 50% IN WATER 50 ML VIAL(D50) IV PUSH PRN (17:15)
[2016-09-23] MEDS ORDERED: GLUCAGON 1 MG/ML VIAL OTHER PRN (17:15)
[2016-09-23] MEDS: INSULIN ASPART SUPPLEMENTAL SCALE SQ SCH (21:00)
[2016-09-23] MEDS: CARVEDILOL 12.5 MG TAB PO SCH (21:32)
[2016-09-24] VITALS (17 sets, daily range): BP systolic 128–176; BP diastolic 62–99; PULSE 74–90; RESP 18; TEMP 98.9–100.8; O2SAT 96–99
[2016-09-24] MEDS: ISOSORBIDE MONONITRATE 30 MG TAB PO SCH (06:48)
[2016-09-24] MEDS: INSULIN ASPART SUPPLEMENTAL SCALE SQ SCH ×4 (06:53→21:00)
[2016-09-24] MEDS: SODIUM CHLORIDE 0.9% FLUSH 10 ML FLUSH IV FLUSH SCH ×2 (09:00→21:00)
[2016-09-24] MEDS: TICAGRELOR 90 MG TAB PO SCH ×2 (09:06→21:16)
[2016-09-24] MEDS: ASPIRIN 81 MG CHEW TAB CHEW SCH (09:06)
[2016-09-24] MEDS: CARVEDILOL 12.5 MG TAB PO SCH ×2 (09:06→21:16)
[2016-09-24] MEDS: LISINOPRIL 5 MG TAB PO SCH (09:06)
[2016-09-24] MEDS: NITROGLYCERIN-DEXTROSE INJ 250 ML IV SCH (09:16)
--- NOTE | 2016-09-24 10:17 | PD.CARD.PN ---
Subjective Subjective Remarks Mild headache. No angina. No SOB Objective Medications Current Medications Medications (Trade) Dose Ordered Sig/Belen Route Start Time Stop Time Status Last Admin (Nitroglycerin-Dextrose Inj) 250 ml @ 0 mls/hr TITRATE IV 09/22/16 07:45 09/24/16 09:16 (Morphine Inj) 2 mg Q30M PRN IV 09/22/16 09:30 (Tylenol) 650 mg Q6H PRN PO 09/22/16 09:30 09/24/16 09:06 (Colace) 100 mg BID PRN PO 09/22/16 09:30 (Xanax) 0.25 mg Q8H PRN PO 09/22/16 09:30 Lisinopril 5 mg 5 mg DAILY PO 09/22/16 09:30 09/24/16 09:06 (Trandate Inj/NS Inj) 250 ml @ 0 mls/hr TITRATE IV 09/22/16 11:00 (NS Flush) 2 ml BID IV FLUSH 09/22/16 21:00 09/24/16 09:00 (NS Flush) 2 ml UNSCH PRN IV FLUSH 09/22/16 12:15 (Atropine Inj) 0.5 mg UNSCH PRN IV 09/22/16 12:15 (Zofran Inj) 4 mg Q4H PRN IV 09/22/16 12:15 09/22/16 16:15 (Aspirin Chew) 81 mg DAILY CHEW 09/23/16 09:00 09/24/16 09:06 (Brilinta) 90 mg BID PO 09/22/16 21:00 09/24/16 09:06 (Trandate Inj) 10 mg Q4H PRN IV PUSH 09/22/16 16:45 09/23/16 08:40 (Norvasc) 10 mg DAILY PO 09/23/16 09:45 09/24/16 09:06 (Imdur) 30 mg DAILY@07 PO 09/24/16 07:00 09/24/16 06:48 (Coreg) 12.5 mg Q12HR PO 09/23/16 21:00 09/24/16 09:06 (D50w (Vial) Inj) 25 ml UNSCH PRN IV PUSH 09/23/16 17:15 (Glucagon Inj) 1 mg UNSCH PRN OTHER 09/23/16 17:15 Vital Signs / I&O Vital Signs Date Time Temp Pulse Resp B/P Pulse Ox O2 Delivery O2 Flow Rate FiO2 09/24/16 04:00 85 09/24/16 04:00 99.7 85 18 143/86 96 09/24/16 00:04 100.8 89 18 128/62 96 09/24/16 00:00 89 09/23/16 20:00 95 09/23/16 19:00 101.0 95 20 138/73 95 09/23/16 18:25 148/88 09/23/16 18:00 90 09/23/16 17:00 90 09/23/16 16:00 89 09/23/16 16:00 98.4 88 16 159/103 96 09/23/16 15:00 86 09/23/16 14:00 88 09/23/16 13:00 86 09/23/16 12:00 87 09/23/16 12:00 98.4 83 16 137/92 95 09/23/16 11:00 86 09/23/16 10:15 147/89 I/O 09/23/16 09/23/16 09/23/16 09/24/16 09/24/16 09/24/16 07:00 15:00 23:00 07:00 15:00 23:00 Intake Total 990 ml 832 ml 670 ml Output Total 350 ml Balance 990 ml 482 ml 670 ml Intake Oral 600 ml 620 ml 500 ml IV Total 390 ml 212 ml 170 ml Output Urine Total 350 ml # Voids 2 2 2 # Bowel Movements 0 1 Physical Exam Alert, non-toxic, NAD Chest clear CV S1S2 RRR Abd soft Right groin OK No edema, perfusion nl BP controlled Laboratory Laboratory Tests Test 09/23/16 09/23/16 09/23/16 11:10 14:22 15:40 Total Creatine Kinase 92 U/L Troponin I 6.04 NG/ML White Blood Count 8.3 TH/MM3 Red Blood Count 3.22 MIL/MM3 Hemoglobin 9.4 GM/DL Hematocrit 29.4 % Mean Corpuscular Volume 91.2 FL Mean Corpuscular Hemoglobin 29.1 PG Mean Corpuscular Hemoglobin 31.9 % Concent Red Cell Distribution Width 14.5 % Platelet Count 229 TH/MM3 Mean Platelet Volume 7.0 FL Neutrophils (%) (Auto) 65.2 % Lymphocytes (%) (Auto) 18.0 % Monocytes (%) (Auto) 14.6 % Eosinophils (%) (Auto) 1.6 % Basophils (%) (Auto) 0.6 % Neutrophils # (Auto) 5.4 TH/MM3 Lymphocytes # (Auto) 1.5 TH/MM3 Monocytes # (Auto) 1.2 TH/MM3 Eosinophils # (Auto) 0.1 TH/MM3 Basophils # (Auto) 0.0 TH/MM3 CBC Comment DIFF FINAL Differential Comment Urine Color YELLOW Urine Turbidity CLEAR Urine pH 5.0 Urine Specific [place] 1.023 Urine Protein NEG mg/dL Urine Glucose (UA) NEG mg/dL Urine Ketones NEG mg/dL Urine Occult Blood NEG Urine Nitrite NEG Urine Bilirubin NEG Urine Urobilinogen LESS THAN 2.0 MG/DL Urine Leukocyte Esterase NEG Urine WBC 2 /hpf Urine Squamous Epithelial 2 /hpf Cells Urine Mucus FEW /lpf Microscopic Urinalysis Comment CULT NOT INDICATED Assessment and Plan Problem List: (1) Hypertensive emergency Assessment and Plan: RUTH OK now (2) Non-STEMI (non-ST elevated myocardial infarction) Assessment and Plan: Med tx (3) Transaminitis (4) CKD (chronic kidney disease) (5) SOB (shortness of breath) (6) PAD (peripheral artery disease) (7) Systolic CHF Assessment and Plan: stable (8) Ischemic cardiomyopathy Assessment and Plan OK to discharge from cardiology. Take only 1/2 Imdur 30mg and increase to whole after HURLEY stop Trevor Melton MD Sep 24, 2016 10:17
--- NOTE | 2016-09-24 11:09 | EKG ---
Date Performed: 09/22/2016 Time Performed: 21:55:16 PTAGE: 65 years EKG: Sinus rhythm with PAC(s) Possible septal infarct - age undetermined Inferior/lateral T wave changes may be due to myocardial ischemia Abnormal ECG PREVIOUS TRACING : 09/22/2016 16.48 DOCTOR: Sam Shine Interpretating Date/Time 09/24/2016 11:04:46
--- NOTE | 2016-09-24 11:16 | EKG ---
Date Performed: 09/22/2016 Time Performed: 16:48:36 PTAGE: 65 years EKG: Sinus rhythm with bigeminal PVCs Possible anteroseptal infarct - age undetermined Abnormal ECG PREVIOUS TRACING : 09/22/2016 07.40 DOCTOR: Sam Shine Interpretating Date/Time 09/24/2016 11:12:23
--- NOTE | 2016-09-24 15:05 | RADRPT ---
EXAM DATE/TIME: 09/24/2016 13:42 [place] COMPARISON: No previous studies available for comparison. INDICATIONS : Shortness of breath. DOSE: 8.1 mCi Tc99m MAA IV 0.9 mCi Tc99m DTPA aerosol MEDICAL HISTORY : Hypertension. SURGICAL HISTORY : CABG ENCOUNTER: Initial ACUITY: 1 day PAIN SCALE: 2/10 LOCATION: Bilateral chest TECHNIQUE: Following five minutes of tidal breathing of DTPA aerosol, planar images of the lungs were performed in eight projections. The patient was then injected with MAA, and eight-view perfusion scan was perf ormed. FINDINGS: There is a somewhat heterogeneous pattern of aerosol delivery to the periphery of both lungs. The perfusion lung scan demonstrates a homogenous pattern of uptake in both lungs. No segmental or s ubsegmental defects are seen. Cardiac enlargement with impression on the left lung. CONCLUSION: 1. Low probability for pulmonary bolus. Matteo Blair MD on September 24, 2016 at 15:03 Board Certified Radiologist. This report was verified electronically.
[2016-09-24 15:52] LABS: AUTOMATED NEUTROPHIL # 6.1 TH/MM3 (1.8-7.7); BASOPHIL # 0.1 TH/MM3 (0-0.2); BASOPHIL % 0.7 % (0.0-2.0); EOSINOPHIL # 0.2 TH/MM3 (0-0.4); EOSINOPHIL % 1.8 % (0.0-4.0); HEMATOCRIT 27.5 % (35.0-46.0); HEMO FLAGS DIFF FINAL; LYMPH % 12.3 % (9.0-44.0); MEAN CELL VOLUME 89.5 FL (80.0-100.0); MEAN CORPUSCULAR HEMOGLOBIN 31.1 PG (27.0-34.0); MEAN CORPUSCULAR HGB CONC 34.7 % (32.0-36.0); MONO % 13.5 % (0.0-8.0); NEUT % 71.7 % (16.0-70.0); PLATELET COUNT 223 TH/MM3 (150-450); RED BLOOD COUNT 3.07 MIL/MM3 (4.00-5.30); RED CELL DISTRIBUTION WIDTH 14.3 % (11.6-17.2); WHITE BLOOD COUNT 8.5 TH/MM3 (4.0-11.0)
[2016-09-24] MEDS ORDERED: LEVOFLOXACIN 750 MG PREMIX INJ 150 ML IV SCH (16:00)
[2016-09-24 16:19] LABS: ANION GAP 9 MEQ/L (5-15); AST (GOT) 13 U/L (15-37); BLOOD UREA NITROGEN 20 MG/DL (7-18); CHLORIDE 104 MEQ/L (98-107); GLOMERULAR FILTRATION RATE 48 ML/MIN (>89); POTASSIUM 4.2 MEQ/L (3.5-5.1); SODIUM (NA) 138 MEQ/L (136-145)
[2016-09-24 16:23] LABS: ALKALINE PHOSPHATASE 74 U/L (45-117); ALT (GPT) 43 U/L (10-53); TOTAL BILIRUBIN ADULT 1.3 MG/DL (0.2-1.0)
--- NOTE | 2016-09-24 16:59 | HHI.PR ---
Subjective Remarks Patient states that she still feels SOB denies cp blood pressure is much improved Had a fever with a Tmax of 101 last night denies diarrhea/abdominal pain/nausea/vomiting. Objective Vitals Vital Signs Date Time Temp Pulse Resp B/P Pulse Ox O2 Delivery O2 Flow Rate FiO2 09/24/16 12:00 98.9 83 18 146/68 97 09/24/16 08:00 99.6 89 18 140/79 99 09/24/16 04:00 85 09/24/16 04:00 99.7 85 18 143/86 96 09/24/16 00:04 100.8 89 18 128/62 96 09/24/16 00:00 89 09/23/16 20:00 95 09/23/16 19:00 101.0 95 20 138/73 95 09/23/16 18:25 148/88 09/23/16 18:00 90 09/23/16 17:00 90 I/O 09/23/16 09/23/16 09/23/16 09/24/16 09/24/16 09/24/16 07:00 15:00 23:00 07:00 15:00 23:00 Intake Total 990 ml 832 ml 670 ml Output Total 350 ml Balance 990 ml 482 ml 670 ml Intake Oral 600 ml 620 ml 500 ml IV Total 390 ml 212 ml 170 ml Output Urine Total 350 ml # Voids 2 2 2 # Bowel Movements 0 1 Result Diagram: 09/24/16 1536 09/24/16 1536 Imaging Last Impressions Lung Scan-VQ Nuclear Medicine 09/24/16 0000 Signed Impressions: Service Date/Time: Saturday, September 24, 2016 13:42 - CONCLUSION: 1. Low probability for pulmonary bolus. Matteo Blair MD Chest X-Ray 09/22/16 0613 Signed Impressions: Service Date/Time: August 06:31 - CONCLUSION: 1. Left midlung and left basilar subsegmental atelectasis. 2. Cardiomegaly and previous median sternotomy. Wes Cherry MD Liver Ultrasound 09/22/16 0000 Signed Impressions: Service Date/Time: August 21:26 - CONCLUSION: 1. Small right pleural effusion. 2. Engorged hepatic veins and IVC suggesting a component of right-sided heart failure. 3. Tiny solitary gallstone. No ultrasound findings to suggest acute cholecystitis. Paddy De Luna Jr., MD Reviewed by me. Objective Remarks GENERAL: This is a well-nourished, well-developed patient, not in acute distress. SKIN: No rashes, ecchymoses or lesions. Cool and dry. HEAD: Atraumatic. Normocephalic. No temporal or scalp tenderness. EYES: Pupils equal round and reactive. Extraocular motions intact. No scleral icterus. No injection or drainage. ENT: Nose without bleeding, purulent drainage or septal hematoma. Throat without erythema, tonsillar hypertrophy or exudate. Uvula midline. Airway patent. NECK: Trachea midline. No JVD or lymphadenopathy. Supple, nontender, no meningeal signs. CARDIOVASCULAR: Regular rate and rhythm without murmurs, gallops, or rubs. RESPIRATORY: Clear to auscultation. Breath sounds equal bilaterally. No wheezes , rales, or rhonchi. GASTROINTESTINAL: Abdomen soft, non-tender, nondistended. No hepato-splenomegaly , or palpable masses. No guarding. Obese. MUSCULOSKELETAL: Extremities without clubbing, cyanosis, edema +1 in lower extremities. No joint tenderness, effusion, or edema noted. No calf tenderness. Negative Homans sign bilaterally. NEUROLOGICAL: Awake and alert. Cranial nerves II through XII intact. Motor and sensory grossly within normal limits. Five out of 5 muscle strength in all muscle groups. Normal speech. Procedures That is post cardiac catheterization on 09/22/16. Medications and IVs Current Medications Medications (Trade) Dose Ordered Sig/Belen Route Start Time Stop Time Status Last Admin (Nitroglycerin-Dextrose Inj) 250 ml @ 0 mls/hr TITRATE IV 09/22/16 07:45 09/24/16 09:16 (Morphine Inj) 2 mg Q30M PRN IV 09/22/16 09:30 (Tylenol) 650 mg Q6H PRN PO 09/22/16 09:30 09/24/16 09:06 (Colace) 100 mg BID PRN PO 09/22/16 09:30 (Xanax) 0.25 mg Q8H PRN PO 09/22/16 09:30 Lisinopril 5 mg 5 mg DAILY PO 09/22/16 09:30 09/24/16 09:06 (Trandate Inj/NS Inj) 250 ml @ 0 mls/hr TITRATE IV 09/22/16 11:00 (NS Flush) 2 ml BID IV FLUSH 09/22/16 21:00 09/24/16 09:00 (NS Flush) 2 ml UNSCH PRN IV FLUSH 09/22/16 12:15 (Atropine Inj) 0.5 mg UNSCH PRN IV 09/22/16 12:15 (Zofran Inj) 4 mg Q4H PRN IV 09/22/16 12:15 09/22/16 16:15 (Aspirin Chew) 81 mg DAILY CHEW 09/23/16 09:00 09/24/16 09:06 (Brilinta) 90 mg BID PO 09/22/16 21:00 09/24/16 09:06 (Trandate Inj) 10 mg Q4H PRN IV PUSH 09/22/16 16:45 09/23/16 08:40 (Norvasc) 10 mg DAILY PO 09/23/16 09:45 09/24/16 09:06 (Imdur) 30 mg DAILY@07 PO 09/24/16 07:00 09/24/16 06:48 (Coreg) 12.5 mg Q12HR PO 09/23/16 21:00 09/24/16 09:06 (D50w (Vial) Inj) 25 ml UNSCH PRN IV PUSH 09/23/16 17:15 Glucagon 1 mg 1 mg UNSCH PRN OTHER 09/23/16 17:15 (Levaquin 750 Mg Premix Inj) 150 ml @ 100 mls/hr Q48H IV 09/24/16 16:00 Urinary Catheter: No Vascular Central Line Catheter: No A/P Problem List: (1) Non-STEMI (non-ST elevated myocardial infarction) ICD Code: I21.4 Status: Acute (2) Hypertensive emergency ICD Code: I16.1 Status: Resolved (3) SOB (shortness of breath) ICD Code: R06.02 Status: Acute (4) DAQUAN (acute kidney injury) ICD Code: N17.9 Status: Acute (5) Hyperglycemia ICD Code: R73.9 Status: Acute (6) Transaminitis ICD Code: R74.0 Status: Acute (7) Ischemic cardiomyopathy ICD Code: I25.5 Status: Acute (8) Acute on chronic combined systolic (congestive) and diastolic (congestive) heart failure ICD Code: I50.43 Status: Acute (9) Hepatitis C antibody positive in blood ICD Code: R76.8 Status: Acute (10) Low grade fever ICD Code: R50.9 Status: Acute Assessment and Plan (1) Non-STEMI (non-ST elevated myocardial infarction) Plan: CC 5-year-old female who presents to [facility] [place] complaining of chest pain or short of breath. Cardiac enzymes found to be elevated with a troponin of 9.59. EKG on presentation to the emergency department showed specific tachycardia with a ventricular rate of 109 bpm, signs consistent with left atrial enlargement, septal VT and ST depressions in leads V5 and V6. No clear ST elevation. Chest x-ray as described above and reviewed by me showed left midlung and left basilar subsegmental atelectasis. Cardiomegaly and previous median sternotomy. Admit the patient to the cardiac intermediate care unit sp Rx with Iv heparin and IV nitroglycerin. Patient was started on coreg and lisinopril. Cardiology consult appreciated. Patient underwent cardiac catheterization on 09/22/16 which showed severe [place] CAD BCs, patent 3 out of 3 grafts with a PIRES to LAD, SVG jump graft to first and second obtuse marginal and significantly elevated left ventricular end -diastolic pressure of 35. The case was discussed with Dr. Willis over the phone. He recommends medical management since none of the [place] chronically concluded [place] vessels are amenable to stenting. Continue Continue Coreg, Brilinta, Hold fina given worsening DAQUAN. Will resume once creatinine better. 09/24 BP stable. continue above mentioned medications. Patient cleared by cardiology to be discharged. (2) Hypertensive emergency Blood pressure is better controlled. Carvedilol dose was increased to 12.5 mg by mouth twice a day. Patient was also started on Imdur 30 mg by mouth daily. Continue amlodipine 10 mg by mouth daily. FINA held due to kidney injury. (3) SOB (shortness of breath) Chest x-ray as mentioned above. CTA to rule out PE was initially ordered by ED physician and then canceled by her. VQ scan done and low probability for PE. 09/24 the patient still has persistent shortness of breath. Chest x-ray showed possible bronchiectasis versus community-acquired pneumonia also possible given that the patient has had fevers and no other source found. I will start the patient empirically on oral Levaquin, repeat a chest x-ray PA and lateral and order incentive spirometry. (4) DAQUAN (acute kidney injury) Worsening acute kidney injury. Creatinine now trending down from 1.4 to 1.3. Worsening creatinine likely secondary to contrast administration for cardiac catheterization. Possibly contrast-induced nephropathy. Continue to monitor BUN/creatinine, avoid nephrotoxins. No old creatinine for comparison but patient denies previous kidney injury. (5) Hyperglycemia Plan: Patient has new onset diabetes mellitus. Hemoglobin A1c is 7.3. I will start the patient on SSI with insulin NovoLog and Accu-Cheks. clinical unit educator consulted. The patient most likely will need to be discharged home on oral metformin. (6) Transaminitis Mild elevation of transaminases seen. Likely due hepatic congestion due to chf. Lft's now normal. (7) Ischemic cardiomyopathy 2-D echocardiogram obtained on 09/22/16 showed the left ventricle with increased work thickness in a pattern of moderate LVH. There was concentric hypertrophy. Systolic function was severely reduced. The estimated ejection fraction is in the range of 30-35%. Diffuse hypokinesis. Akinesis of the anteroseptal myocardium; consistent with infarction. Features consistent with a pseudo-normal left ventricular filling pattern with concomitant abnormal relaxation and increased filling pressure (grade 2 diastolic dysfunction). Moderate mitral regurgitation and marked to severe tricuspid regurgitation. Pulmonary arteries peak pressure 43 mmHg. Follow-up cardiology recommendations. Optimize medical management. (8) Acute on chronic combined systolic (congestive) and diastolic (congestive) heart failure Plan: Patient presented with shortness of breath, liver ultrasound showed small right pleural effusion and engorged hepatic veins and IVC suggesting component of right-sided heart failure. The patient will need to be diuresed after the patient's creatinine started trending down. Follow-up cardiology recommendations. (9) Hepatitis C antibody positive in blood Plan: I will check a hepatitis C viral load. (10) Low grade fever Plan: Patient has low-grade fever with a MAXIMUM TEMPERATURE of 100.4. I will check urinalysis. GI prophylaxis: I will add a PPI. DVT prophylaxis: SCDs, no heparin or Lovenox given that the patient is on Brilinta. Discharge Planning Continue to monitor in the medical floor. Patient having fevers. Needs to be fever free x 24 hrs in order to be discharged. Ok to transfer to medical floor. Ganesh Weinberg MD Sep 24, 2016 16:59
[2016-09-25] VITALS (22 sets, daily range): BP systolic 122–155; BP diastolic 68–98; PULSE 66–82; RESP 16–18; TEMP 98.1–99.3; O2SAT 97–100
[2016-09-25] MEDS: INSULIN ASPART SUPPLEMENTAL SCALE SQ SCH ×4 (06:24→21:00)
[2016-09-25] MEDS: ISOSORBIDE MONONITRATE 30 MG TAB PO SCH (06:24)
[2016-09-25 08:05] LABS: AUTOMATED NEUTROPHIL # 5.7 TH/MM3 (1.8-7.7); BASOPHIL % 0.3 % (0.0-2.0); EOSINOPHIL # 0.2 TH/MM3 (0-0.4); HEMO FLAGS DIFF FINAL; LYMPH % 13.2 % (9.0-44.0); LYMPHOCYTE # 1.1 TH/MM3 (1.0-4.8); MEAN CORPUSCULAR HEMOGLOBIN 29.7 PG (27.0-34.0); MONO % 13.4 % (0.0-8.0); NEUT % 70.1 % (16.0-70.0); PLATELET COUNT 222 TH/MM3 (150-450); RED CELL DISTRIBUTION WIDTH 14.4 % (11.6-17.2); WHITE BLOOD COUNT 8.2 TH/MM3 (4.0-11.0)
[2016-09-25 08:20] LABS: ALKALINE PHOSPHATASE 80 U/L (45-117); ALT (GPT) 38 U/L (10-53); ANION GAP 7 MEQ/L (5-15); AST (GOT) 15 U/L (15-37); BICARBONATE 26.2 MEQ/L (21.0-32.0); BLOOD UREA NITROGEN 20 MG/DL (7-18); CHLORIDE 104 MEQ/L (98-107); GLOMERULAR FILTRATION RATE 48 ML/MIN (>89); POTASSIUM 4.1 MEQ/L (3.5-5.1); SODIUM (NA) 137 MEQ/L (136-145)
[2016-09-25] MEDS: SODIUM CHLORIDE 0.9% FLUSH 10 ML FLUSH IV FLUSH SCH ×2 (09:00→21:00)
[2016-09-25] MEDS: FUROSEMIDE 20 MG TAB PO SCH (09:30)
[2016-09-25] MEDS: TICAGRELOR 90 MG TAB PO SCH ×2 (09:37→21:15)
[2016-09-25] MEDS: LISINOPRIL 5 MG TAB PO SCH (09:37)
[2016-09-25] MEDS: CARVEDILOL 12.5 MG TAB PO SCH ×2 (09:37→21:15)
[2016-09-25] MEDS: ASPIRIN 81 MG CHEW TAB CHEW SCH (09:37)
[2016-09-25] MEDS: NITROGLYCERIN-DEXTROSE INJ 250 ML IV SCH ×2 (09:41→12:33)
--- NOTE | 2016-09-25 10:03 | HHI.PR ---
Subjective Remarks Patient states breathing is better denies cp denies cough no fevers yesterday Objective Vitals Vital Signs Date Time Temp Pulse Resp B/P Pulse Ox O2 Delivery O2 Flow Rate FiO2 09/25/16 08:00 98.4 78 18 148/85 99 09/25/16 06:00 74 09/25/16 05:00 76 09/25/16 04:00 99.3 78 18 145/95 99 09/25/16 04:00 81 09/25/16 03:00 76 09/25/16 02:00 78 09/25/16 01:00 78 09/25/16 00:00 80 09/25/16 00:00 99.2 77 18 139/89 97 09/25/16 00:00 78 09/24/16 23:00 78 09/24/16 22:00 82 09/24/16 21:00 80 09/24/16 20:00 82 09/24/16 20:00 99.6 84 18 176/99 97 09/24/16 19:00 80 09/24/16 18:00 80 09/24/16 17:00 80 09/24/16 16:00 99.3 78 18 147/88 97 09/24/16 16:00 78 09/24/16 15:00 74 09/24/16 13:00 80 09/24/16 12:00 76 09/24/16 12:00 98.9 83 18 146/68 97 09/24/16 10:00 90 I/O 09/24/16 09/24/16 09/24/16 09/25/16 09/25/16 09/25/16 07:00 15:00 23:00 07:00 15:00 23:00 Intake Total 670 ml 440 ml 810 ml Balance 670 ml 440 ml 810 ml Intake Oral 500 ml 240 ml 360 ml IV Total 170 ml 200 ml 450 ml # Voids 2 3 2 # Bowel Movements 0 Result Diagram: 09/25/1672409/25/16724 Imaging Last Impressions Lung Scan-VQ Nuclear Medicine 09/24/16 0000 Signed Impressions: Service Date/Time: Saturday, September 24, 2016 13:42 - CONCLUSION: 1. Low probability for pulmonary bolus. Matteo Blair MD Chest X-Ray 09/22/1613 Signed Impressions: Service Date/Time: August 06:31 - CONCLUSION: 1. Left midlung and left basilar subsegmental atelectasis. 2. Cardiomegaly and previous median sternotomy. Wes Cherry MD Liver Ultrasound 09/22/16 0000 Signed Impressions: Service Date/Time: August 21:26 - CONCLUSION: 1. Small right pleural effusion. 2. Engorged hepatic veins and IVC suggesting a component of right-sided heart failure. 3. Tiny solitary gallstone. No ultrasound findings to suggest acute cholecystitis. Paddy De Luna Jr., MD Objective Remarks GENERAL: This is a well-nourished, well-developed patient, not in acute distress. SKIN: No rashes, ecchymoses or lesions. Cool and dry. HEAD: Atraumatic. Normocephalic. No temporal or scalp tenderness. EYES: Pupils equal round and reactive. Extraocular motions intact. No scleral icterus. No injection or drainage. ENT: Nose without bleeding, purulent drainage or septal hematoma. Throat without erythema, tonsillar hypertrophy or exudate. Uvula midline. Airway patent. NECK: Trachea midline. No JVD or lymphadenopathy. Supple, nontender, no meningeal signs. CARDIOVASCULAR: Regular rate and rhythm without murmurs, gallops, or rubs. RESPIRATORY: Clear to auscultation. Breath sounds equal bilaterally. No wheezes , rales, or rhonchi. GASTROINTESTINAL: Abdomen soft, non-tender, nondistended. No hepato-splenomegaly , or palpable masses. No guarding. Obese. MUSCULOSKELETAL: Extremities without clubbing, cyanosis, edema +1 in lower extremities. No joint tenderness, effusion, or edema noted. No calf tenderness. Negative Homans sign bilaterally. NEUROLOGICAL: Awake and alert. Cranial nerves II through XII intact. Motor and sensory grossly within normal limits. Five out of 5 muscle strength in all muscle groups. Normal speech. Procedures That is post cardiac catheterization on 09/22/16. Medications and IVs Current Medications Medications (Trade) Dose Ordered Sig/Belen Route Start Time Stop Time Status Last Admin (Nitroglycerin-Dextrose Inj) 250 ml @ 0 mls/hr TITRATE IV 09/22/16 07:45 09/24/16 09:16 (Morphine Inj) 2 mg Q30M PRN IV 09/22/16 09:30 (Tylenol) 650 mg Q6H PRN PO 09/22/16 09:30 09/24/16 09:06 (Colace) 100 mg BID PRN PO 09/22/16 09:30 (Xanax) 0.25 mg Q8H PRN PO 09/22/16 09:30 Lisinopril 5 mg 5 mg DAILY PO 09/22/16 09:30 09/24/16 09:06 (Trandate Inj/NS Inj) 250 ml @ 0 mls/hr TITRATE IV 09/22/16 11:00 (NS Flush) 2 ml BID IV FLUSH 09/22/16 21:00 09/24/16 21:00 (NS Flush) 2 ml UNSCH PRN IV FLUSH 09/22/16 12:15 (Atropine Inj) 0.5 mg UNSCH PRN IV 09/22/16 12:15 (Zofran Inj) 4 mg Q4H PRN IV 09/22/16 12:15 09/22/16 16:15 (Aspirin Chew) 81 mg DAILY CHEW 09/23/16 09:00 09/24/16 09:06 (Brilinta) 90 mg BID PO 09/22/16 21:00 09/24/16 21:16 (Trandate Inj) 10 mg Q4H PRN IV PUSH 09/22/16 16:45 09/23/16 08:40 (Norvasc) 10 mg DAILY PO 09/23/16 09:45 09/24/16 09:06 (Imdur) 30 mg DAILY@07 PO 09/24/16 07:00 09/25/16 06:24 (Coreg) 12.5 mg Q12HR PO 09/23/16 21:00 09/24/16 21:16 (D50w (Vial) Inj) 25 ml UNSCH PRN IV PUSH 09/23/16 17:15 Glucagon 1 mg 1 mg UNSCH PRN OTHER 09/23/16 17:15 (Levaquin 750 Mg Premix Inj) 150 ml @ 100 mls/hr Q48H IV 09/24/16 16:00 09/24/16 16:00 Urinary Catheter: No Vascular Central Line Catheter: No A/P Problem List: (1) Non-STEMI (non-ST elevated myocardial infarction) ICD Code: I21.4 Status: Resolved (2) Hypertensive emergency ICD Code: I16.1 Status: Resolved (3) SOB (shortness of breath) ICD Code: R06.02 Status: Resolved (4) DAQUAN (acute kidney injury) ICD Code: N17.9 Status: Acute (5) Hyperglycemia ICD Code: R73.9 Status: Acute (6) Transaminitis ICD Code: R74.0 Status: Resolved (7) Ischemic cardiomyopathy ICD Code: I25.5 Status: Acute (8) Acute on chronic combined systolic (congestive) and diastolic (congestive) heart failure ICD Code: I50.43 Status: Resolved (9) Hepatitis C antibody positive in blood ICD Code: R76.8 Status: Acute (10) Low grade fever ICD Code: R50.9 Status: Resolved (11) New onset type 2 diabetes mellitus ICD Code: E11.9 Status: Acute (12) CAP (community acquired pneumonia) ICD Code: J18.9 Status: Acute Assessment and Plan (1) Non-STEMI (non-ST elevated myocardial infarction) Plan: CC 5-year-old female who presents to [facility] complaining of chest pain or short of breath. Cardiac enzymes found to be elevated with a troponin of 9.59. EKG on presentation to the emergency department showed specific tachycardia with a ventricular rate of 109 bpm, signs consistent with left atrial enlargement, septal NE and ST depressions in leads V5 and V6. No clear ST elevation. Chest x-ray as described above and reviewed by me showed left midlung and left basilar subsegmental atelectasis. Cardiomegaly and previous median sternotomy. Admit the patient to the cardiac intermediate care unit sp Rx with Iv heparin and IV nitroglycerin. Patient was started on coreg and lisinopril. Cardiology consult appreciated. Patient underwent cardiac catheterization on 09/22/16 which showed severe [place] CAD BCs, patent 3 out of 3 grafts with a PIRES to LAD, SVG jump graft to first and second obtuse marginal and significantly elevated left ventricular end -diastolic pressure of 35. The case was discussed with Dr. Willis over the phone. He recommends medical management since none of the [place] chronically concluded [place] vessels are amenable to stenting. Continue Continue Coreg, Brilinta, Hold fina given worsening DAQUAN. Will resume once creatinine better. 09/24 BP stable. continue above mentioned medications. Patient cleared by cardiology to be discharged. (2) Hypertensive emergency Blood pressure is stable. Carvedilol dose was increased to 12.5 mg by mouth twice a day. Patient was also started on Imdur 30 mg by mouth daily. Continue amlodipine 10 mg by mouth daily. FINA held due to kidney injury. (3) SOB (shortness of breath) Chest x-ray as mentioned above. CTA to rule out PE was initially ordered by ED physician and then canceled by her. VQ scan done and low probability for PE. She still had persistent shortness of breath. Chest x-ray showed possible left midlung and left basilar subsegmental atelectases. Cardiomegaly and previous median sternotomy.. The patient was started on Levaquin IV empirically and incentive spirometry. No fevers since then. Patient will be discharge on oral Levaquin. (4) DAQUAN (acute kidney injury) Creatinine is stable at 1.3. Possible chronic kidney disease stage III. Unfortunately we don't have older creatinines to compare. Patient had cardiac catheterization with transient increase in creatinine which trended down to 1.3 and at this point is a stable. Patient has good urine output BUN/creatinine was monitored throughout hospital stay.. (5) New onset diabetes mellitus Plan: Patient has new onset diabetes mellitus. Hemoglobin A1c is 7.3. Blood sugars stable. Continue SSI with insulin NovoLog and Accu-Cheks. rn diabetes educator consulted. I will start the patient on Januvia which I will start at 50 mg by mouth daily which is the dose adjusted to the patient's GFR. (6) Transaminitis Mild elevation of transaminases seen. Likely due hepatic congestion due to chf. Lft's now normal. Patient is positive for hepatitis C antibody (7) Ischemic cardiomyopathy 2-D echocardiogram obtained on 09/22/16 showed the left ventricle with increased work thickness in a pattern of moderate LVH. There was concentric hypertrophy. Systolic function was severely reduced. The estimated ejection fraction is in the range of 30-35%. Diffuse hypokinesis. Akinesis of the anteroseptal myocardium; consistent with infarction. Features consistent with a pseudo-normal left ventricular filling pattern with concomitant abnormal relaxation and increased filling pressure (grade 2 diastolic dysfunction). Moderate mitral regurgitation and marked to severe tricuspid regurgitation. Pulmonary arteries peak pressure 43 mmHg. Follow-up cardiology recommendations. Optimize medical management. (8) Acute on chronic combined systolic (congestive) and diastolic (congestive) heart failure Plan: Patient presented with shortness of breath, liver ultrasound showed small right pleural effusion and engorged hepatic veins and IVC suggesting component of right-sided heart failure. The patient will need to be diuresed after the patient's creatinine started trending down. Follow-up cardiology recommendations. I will start the patient on oral Lasix 20 mg by mouth daily. (9) Hepatitis C antibody positive in blood Plan: C antibody positive, bilateral pending. I will refer the patient to see gastroenterology as an outpatient. (10) Low grade fever Plan: Now resolved. Urinalysis negative. Likely due to Community acquired pneumonia. GI prophylaxis: I will add a PPI. DVT prophylaxis: SCDs, no heparin or Lovenox given that the patient is on Brilinta. Discharge Planning Discharge today after diabetes education and PT evaluation. Ganesh Weinberg MD Sep 25, 2016 10:03
[2016-09-25] MEDS ORDERED: AMLO10 PO (10:09)
[2016-09-25] MEDS ORDERED: LISI-519 PO (10:09)
[2016-09-25] MEDS ORDERED: LEVA500T PO (10:09)
[2016-09-25] MEDS ORDERED: Aspirin Chew CHEW (10:09)
[2016-09-25] MEDS ORDERED: BRIL90TA PO (10:09)
[2016-09-25] MEDS ORDERED: FURO20TA PO (10:09)
[2016-09-25] MEDS ORDERED: CARV12.5 PO (10:09)
--- NOTE | 2016-09-25 10:10 | HHI.DCPOC ---
Discharge Care Plan Diagnosis: (1) Non-STEMI (non-ST elevated myocardial infarction) (2) Acute on chronic combined systolic (congestive) and diastolic (congestive) heart failure (3) New onset type 2 diabetes mellitus (4) CAP (community acquired pneumonia) (5) Hepatitis C antibody positive in blood (6) Hypertensive emergency (7) Transaminitis (8) CKD (chronic kidney disease) (9) DAQUAN (acute kidney injury) Goals to Promote Your Health * To prevent worsening of your condition and complications * To maintain your health at the optimal level Directions to Meet Your Goals Take your medications as prescribed Follow your dietary instruction Follow activity as directed Keep your appointments as scheduled Take your immunizations and boosters as scheduled If your symptoms worsen call your PCP, if no PCP go to Urgent Care Center or Emergency Room Smoking is Dangerous to Your Health. Avoid second hand smoke Call the 24-hour hour crisis hotline for domestic abuse at Ganesh Weinberg MD Sep 25, 2016 10:10
--- NOTE | 2016-09-25 10:16 | RADRPT ---
EXAM DATE/TIME: 09/25/2016 11:05 [place] COMPARISON: LUNG VENTILATION & PERFUSION SCAN, September 24, 2016, 13:42. CHEST SINGLE AP, September 22, 2016, 6:31. INDICATIONS : Fever. Chest pain. MEDICAL HISTORY : Hypertension. CAD. SURGICAL HISTORY : CABG. ENCOUNTER: Subsequent ACUITY: 4 - 6 days PAIN SCORE: 3/10 LOCATION: Bilateral chest FINDINGS: AP portable upright view the chest demonstrates stable cardiomegaly and postsurgical changes related to prior CABG surgery. There is cephalization of pulmonary vasculature with adjacent slight hazy incr eased parenchymal markings. No evidence of focal airspace consolidation or pneumothorax. CONCLUSION: Radiographic findings consistent with congestive heart failure and mild pulmonary edema. Radha Anne MD on September 25, 2016 at 10:13 Board Certified Radiologist. This report was verified electronically.
[2016-09-26] VITALS: BP 156/84; PULSE 72; RESP 18; TEMP 97.4; O2SAT 100
[2016-09-26 01:49] VITALS: PULSE 69
[2016-09-26 04:00] VITALS: BP 159/90; PULSE 72; RESP 16; TEMP 98.1; O2SAT 100
[2016-09-26] MEDS: ISOSORBIDE MONONITRATE 30 MG TAB PO SCH (05:32)
[2016-09-26] MEDS: INSULIN ASPART SUPPLEMENTAL SCALE SQ SCH ×2 (05:32→11:30)
[2016-09-26 08:00] VITALS: BP 153/87; PULSE 78; RESP 18; TEMP 98.5; O2SAT 99
[2016-09-26] MEDS: CARVEDILOL 12.5 MG TAB PO SCH (08:26)
[2016-09-26] MEDS: ASPIRIN 81 MG CHEW TAB CHEW SCH (08:26)
[2016-09-26] MEDS: LISINOPRIL 5 MG TAB PO SCH (08:26)
[2016-09-26] MEDS: TICAGRELOR 90 MG TAB PO SCH (08:26)
[2016-09-26] MEDS: FUROSEMIDE 20 MG TAB PO SCH (08:27)
[2016-09-26] MEDS: SODIUM CHLORIDE 0.9% FLUSH 10 ML FLUSH IV FLUSH SCH (08:32)
--- NOTE | 2016-09-26 09:31 | PD.CARD.PN ---
Subjective Subjective Remarks No chest pain, no shortness of breath Objective Medications Current Medications Medications (Trade) Dose Ordered Sig/Belen Route Start Time Stop Time Status Last Admin (Nitroglycerin-Dextrose Inj) 250 ml @ 0 mls/hr TITRATE IV 09/22/16 07:45 09/25/16 09:41 (Morphine Inj) 2 mg Q30M PRN IV 09/22/16 09:30 (Tylenol) 650 mg Q6H PRN PO 09/22/16 09:30 09/24/16 09:06 (Colace) 100 mg BID PRN PO 09/22/16 09:30 (Xanax) 0.25 mg Q8H PRN PO 09/22/16 09:30 Lisinopril 5 mg 5 mg DAILY PO 09/22/16 09:30 09/26/16 08:26 (Trandate Inj/NS Inj) 250 ml @ 0 mls/hr TITRATE IV 09/22/16 11:00 (NS Flush) 2 ml BID IV FLUSH 09/22/16 21:00 09/26/16 08:32 (NS Flush) 2 ml UNSCH PRN IV FLUSH 09/22/16 12:15 (Atropine Inj) 0.5 mg UNSCH PRN IV 09/22/16 12:15 (Zofran Inj) 4 mg Q4H PRN IV 09/22/16 12:15 09/22/16 16:15 (Aspirin Chew) 81 mg DAILY CHEW 09/23/16 09:00 09/26/16 08:26 (Brilinta) 90 mg BID PO 09/22/16 21:00 09/26/16 08:26 (Trandate Inj) 10 mg Q4H PRN IV PUSH 09/22/16 16:45 09/23/16 08:40 (Norvasc) 10 mg DAILY PO 09/23/16 09:45 09/26/16 08:27 (Imdur) 30 mg DAILY@07 PO 09/24/16 07:00 09/26/16 05:32 (Coreg) 12.5 mg Q12HR PO 09/23/16 21:00 09/26/16 08:26 (D50w (Vial) Inj) 25 ml UNSCH PRN IV PUSH 09/23/16 17:15 Glucagon 1 mg 1 mg UNSCH PRN OTHER 09/23/16 17:15 (Levaquin 750 Mg Premix Inj) 150 ml @ 100 mls/hr Q48H IV 09/24/16 16:00 09/24/16 16:00 (Lasix) 20 mg DAILY PO 09/25/16 09:30 09/26/16 08:27 (Januvia) 50 mg DAILY PO 09/25/16 09:30 09/26/16 08:26 Vital Signs / I&O Vital Signs Date Time Temp Pulse Resp B/P Pulse Ox O2 Delivery O2 Flow Rate FiO2 09/26/16 08:00 98.5 78 18 153/87 99 09/26/16 04:00 98.1 72 16 159/90 100 09/26/16 01:49 69 09/26/16 01:49 69 09/26/16 00:00 97.4 72 18 156/84 100 09/25/16 22:00 69 09/25/16 22:00 76 09/25/16 21:00 71 09/25/16 21:00 71 09/25/16 20:00 98.3 82 16 151/98 100 09/25/16 20:00 73 09/25/16 20:00 74 09/25/16 19:00 76 09/25/16 18:00 78 09/25/16 17:00 72 09/25/16 17:00 66 09/25/16 16:00 98.2 76 18 155/78 97 09/25/16 15:00 75 09/25/16 15:00 75 09/25/16 14:00 72 09/25/16 13:00 78 09/25/16 12:00 72 09/25/16 12:00 72 09/25/16 12:00 98.1 82 18 122/68 98 09/25/16 11:00 77 09/25/16 11:00 77 I/O 09/25/16 09/25/16 09/25/16 09/26/16 09/26/16 09/26/16 07:00 15:00 23:00 07:00 15:00 23:00 Intake Total 810 ml 680 ml Balance 810 ml 680 ml Intake Oral 360 ml 480 ml IV Total 450 ml 200 ml # Voids 2 3 1 # Bowel Movements 0 0 Physical Exam GENERAL: NAD, AAOx3 SKIN: Warm and dry. HEAD: Atraumatic. Normocephalic. EYES: Pupils equal and round. No scleral icterus. No injection or drainage. ENT: No nasal bleeding or discharge. Mucous membranes pink and moist. NECK: Trachea midline. No JVD. CARDIOVASCULAR: Regular rate and rhythm. 2/6 holosystolic murmur at the apex RESPIRATORY: No accessory muscle use. Decreased breath sounds bilaterally GASTROINTESTINAL: Abdomen soft, non-tender, nondistended. Hepatic and splenic margins not palpable. MUSCULOSKELETAL: Extremities without clubbing, cyanosis, or edema. No obvious deformities. Right femoral no hematoma/bruit noted NEUROLOGICAL: Awake and alert. No obvious cranial nerve deficits. Motor grossly within normal limits. Five out of 5 muscle strength in the arms and legs. Normal speech. PSYCHIATRIC: Appropriate mood and affect; insight and judgment normal. Assessment and Plan Problem List: (1) Hypertensive emergency (2) Non-STEMI (non-ST elevated myocardial infarction) (3) Transaminitis (4) CKD (chronic kidney disease) (5) SOB (shortness of breath) (6) PAD (peripheral artery disease) (7) Systolic CHF (8) Ischemic cardiomyopathy Assessment and Plan 1) NSTEMI from hypertensive emergency, no targets for percutaneous intervention or repeat bypass, continue medical management 2) ASA/BB/Brilinta 3) Systolic heart failure secondary to ischemia/HTN, continue Lasix outpatient 4) Coreg/FINA-I/Imdur/Norvasc for HTN... need outpatient follow up for blood pressure checks and control 5) EF 30-35%, needs to be reassessed outpatient in 3 months for consideration of ICD therapy 6) Cardiovascularly stable for discharge Yohan Willis DO Sep 26, 2016 09:31
--- NOTE | 2016-09-26 10:07 | HHI.DS ---
Discharge Summary Admission Date Sep 22, 2016 at 08:05 Discharge Date: Sep 26, 2016 Admitting Diagnosis chest pain, non-STEMI (1) Non-STEMI (non-ST elevated myocardial infarction) ICD Code: I21.4 Diagnosis: Principal (2) Hypertensive emergency ICD Code: I16.1 Diagnosis: Principal (3) SOB (shortness of breath) ICD Code: R06.02 Diagnosis: Principal (4) DAQUAN (acute kidney injury) ICD Code: N17.9 Diagnosis: Principal (5) Hyperglycemia ICD Code: R73.9 Diagnosis: Principal (6) Transaminitis ICD Code: R74.0 Diagnosis: Principal (7) Ischemic cardiomyopathy ICD Code: I25.5 Diagnosis: Principal (8) Acute on chronic combined systolic (congestive) and diastolic (congestive) heart failure ICD Code: I50.43 Diagnosis: Principal (9) Hepatitis C antibody positive in blood ICD Code: R76.8 Diagnosis: Principal (10) Low grade fever ICD Code: R50.9 Diagnosis: Principal (11) New onset type 2 diabetes mellitus ICD Code: E11.9 Diagnosis: Principal (12) CAP (community acquired pneumonia) ICD Code: J18.9 Diagnosis: Principal Procedures Patient is sp cardiac catheterization on 09/22/16. Brief History - From Admission This is a 65-year-old female with past medical history significant for CAD and a prior CABG approximately 9 years ago who presents to [facility] complaining of chest pain or shortness of breath. The patient states that this past Monday she started having some episodic and intermittent chest pain associated with shortness of breath which was self-limited. Next a she had some episodes of chest pain which lasted for 15-20 minutes 0 insurance of breath which also subsided on its own. The patient states however that this morning around 4 AM she started having chest pain localized over the left chest , nonradiating, associated with shortness of breath which did not go away somewhat she decided to present to the hospital. The patient denies any diaphoresis, dizziness, palpitations, abdominal pain, nausea. Patient states the pain was improved after she was given nitroglycerin. Moment obtained. The monitoring specialist shows sinus rhythm and blood pressure is elevated with systolic blood pressures in the 190s. Patient is still complaining of mild chest pain and shortness of breath. CBC/BMP: 09/25/16 0725 09/25/16 0725 Significant Findings Laboratory Tests Test 09/23/16 09/23/16 09/23/16 09/24/16 11:10 14:22 15:40 15:36 Troponin I 6.04 NG/ML (0.02-0.05) Red Blood Count 3.22 MIL/MM3 3.07 MIL/MM3 (4.00-5.30) (4.00-5.30) Hemoglobin 9.4 GM/DL 9.5 GM/DL (11.6-15.3) (11.6-15.3) Hematocrit 29.4 % 27.5 % (35.0-46.0) (35.0-46.0) Mean Corpuscular Hemoglobin 31.9 % Concent (32.0-36.0) Monocytes (%) (Auto) 14.6 % 13.5 % (0.0-8.0) (0.0-8.0) Monocytes # (Auto) 1.2 TH/MM3 1.1 TH/MM3 (0-0.9) (0-0.9) Urine Mucus FEW /lpf (OCC) Neutrophils (%) (Auto) 71.7 % (16.0-70.0) Blood Urea Nitrogen 20 MG/DL (7-18) Creatinine 1.33 MG/DL (0.50-1.00) Estimat Glomerular Filtration 48 ML/MIN (>89) Rate Random Glucose 157 MG/DL (74-106) Total Bilirubin 1.3 MG/DL (0.2-1.0) Aspartate Amino Transf 13 U/L (15-37) (AST/SGOT) Total Protein 6.0 GM/DL (6.4-8.2) Albumin 2.9 GM/DL (3.4-5.0) Test 09/25/16 07:25 Red Blood Count 3.00 MIL/MM3 (4.00-5.30) Hemoglobin 8.9 GM/DL (11.6-15.3) Hematocrit 27.0 % (35.0-46.0) Neutrophils (%) (Auto) 70.1 % (16.0-70.0) Monocytes (%) (Auto) 13.4 % (0.0-8.0) Monocytes # (Auto) 1.1 TH/MM3 (0-0.9) Blood Urea Nitrogen 20 MG/DL (7-18) Creatinine 1.33 MG/DL (0.50-1.00) Estimat Glomerular Filtration 48 ML/MIN (>89) Rate Random Glucose 128 MG/DL (74-106) Calcium Level 8.3 MG/DL (8.5-10.1) Total Protein 5.7 GM/DL (6.4-8.2) Albumin 2.6 GM/DL (3.4-5.0) Imaging Last Impressions Chest X-Ray 09/25/16 0000 Signed Impressions: Service Date/Time: Sunday, September 25, 2016 11:05 - CONCLUSION: Radiographic findings consistent with congestive heart failure and mild pulmonary edema. Radha Anne MD Lung Scan-V Nuclear Medicine 09/24/16 0000 Signed Impressions: Service Date/Time: Saturday, September 24, 2016 13:42 - CONCLUSION: 1. Low probability for pulmonary bolus. Matteo lBair MD Liver Ultrasound 09/22/16 0000 Signed Impressions: Service Date/Time: August 21:26 - CONCLUSION: 1. Small right pleural effusion. 2. Engorged hepatic veins and IVC suggesting a component of right-sided heart failure. 3. Tiny solitary gallstone. No ultrasound findings to suggest acute cholecystitis. Paddy De Luna Jr., MD PE at Discharge GENERAL: This is a well-nourished, well-developed patient, not in acute distress. SKIN: No rashes, ecchymoses or lesions. Cool and dry. HEAD: Atraumatic. Normocephalic. No temporal or scalp tenderness. EYES: Pupils equal round and reactive. Extraocular motions intact. No scleral icterus. No injection or drainage. ENT: Nose without bleeding, purulent drainage or septal hematoma. Throat without erythema, tonsillar hypertrophy or exudate. Uvula midline. Airway patent. NECK: Trachea midline. No JVD or lymphadenopathy. Supple, nontender, no meningeal signs. CARDIOVASCULAR: Regular rate and rhythm without murmurs, gallops, or rubs. RESPIRATORY: Clear to auscultation. Breath sounds equal bilaterally. No wheezes , rales, or rhonchi. GASTROINTESTINAL: Abdomen soft, non-tender, nondistended. No hepato-splenomegaly , or palpable masses. No guarding. Obese. MUSCULOSKELETAL: Extremities without clubbing, cyanosis, edema +1 in lower extremities. No joint tenderness, effusion, or edema noted. No calf tenderness. Negative Homans sign bilaterally. NEUROLOGICAL: Awake and alert. Cranial nerves II through XII intact. Motor and sensory grossly within normal limits. Five out of 5 muscle strength in all muscle groups. Normal speech. Pt update on day of discharge denies cp/sob. stable vital signs. Hospital Course (1) Non-STEMI (non-ST elevated myocardial infarction) 65-year-old female who presents to [facility] complaining of chest pain or short of breath. Cardiac enzymes found to be elevated with a troponin of 9.59. EKG on presentation to the emergency department showed specific tachycardia with a ventricular rate of 109 bpm, signs consistent with left atrial enlargement, septal DE and ST depressions in leads V5 and V6. No clear ST elevation. Chest x-ray as described above and reviewed by me showed left midlung and left basilar subsegmental atelectasis. Cardiomegaly and previous median sternotomy. Patient admitted to [facility]. sp Rx with Iv heparin and IV nitroglycerin. Patient was started on coreg and lisinopril. Cardiology consulted Patient underwent cardiac catheterization on 09/22/16 which showed severe [place] CAD BCs, patent 3 out of 3 grafts with a PIRES to LAD, SVG jump graft to first and second obtuse marginal and significantly elevated left ventricular end -diastolic pressure of 35. The case was discussed with Dr. Willis over the phone. He recommended medical management since none of the [place] chronically concluded [place] vessels are amenable to stenting. Continue Continue Coreg, Brilinta. FINA was held due to worsening DAQUAN. FINA resumed after creatinine improved. (2) Hypertensive emergency Blood pressure is stable. Carvedilol dose was increased to 12.5 mg by mouth twice a day. Patient was also started on Imdur 30 mg by mouth daily. Continue amlodipine 10 mg by mouth daily. FINA resumed upon discharge aftr creatinine improved. (3) SOB (shortness of breath) Chest x-ray as mentioned above. CTA to rule out PE was initially ordered by ED physician and then canceled by her. VQ scan done and low probability for PE. She still had persistent shortness of breath. Chest x-ray showed possible left midlung and left basilar subsegmental atelectases. Cardiomegaly and previous median sternotomy.. The patient was started on Levaquin IV empirically and incentive spirometry. No fevers since then. Patient will be discharge on oral Levaquin. (4) DAQUAN (acute kidney injury) Creatinine is stable at 1.3. Possible chronic kidney disease stage III. Unfortunately we don't have older creatinines to compare. Patient had cardiac catheterization with transient increase in creatinine which trended down to 1.3 and at this point is a stable. Patient has good urine output BUN/creatinine was monitored throughout hospital stay.. (5) New onset diabetes mellitus Plan: Patient has new onset diabetes mellitus. Hemoglobin A1c is 7.3. Blood sugars stable. Continue SSI with insulin NovoLog and Accu-Cheks. simulation educator consulted. Patient started on Januvia 50 mg by mouth daily which is the dose adjusted to the patient's GFR. (6) Transaminitis Mild elevation of transaminases seen. Likely due hepatic congestion due to chf. Transaminitis resolved. Patient is positive for hepatitis C antibody (7) Ischemic cardiomyopathy 2-D echocardiogram obtained on 09/22/16 showed the left ventricle with increased work thickness in a pattern of moderate LVH. There was concentric hypertrophy. Systolic function was severely reduced. The estimated ejection fraction is in the range of 30-35%. Diffuse hypokinesis. Akinesis of the anteroseptal myocardium; consistent with infarction. Features consistent with a pseudo-normal left ventricular filling pattern with concomitant abnormal relaxation and increased filling pressure (grade 2 diastolic dysfunction). Moderate mitral regurgitation and marked to severe tricuspid regurgitation. Pulmonary arteries peak pressure 43 mmHg. Cardiology consulted - recommended outpatient follow up with PCP and cardiology for evaluation of AICD placement due to low EF. (8) Acute on chronic combined systolic (congestive) and diastolic (congestive) heart failure Plan: Patient presented with shortness of breath, liver ultrasound showed small right pleural effusion and engorged hepatic veins and IVC suggesting component of right-sided heart failure. The patient will need to be diuresed after the patient's creatinine started trending down. Follow-up cardiology recommendations. Discharged on oral lasix. (9) Hepatitis C antibody positive in blood Plan: C antibody positive, bilateral pending. Patient referred to GI as an outpatient. (10) Low grade fever Plan: Now resolved. Urinalysis negative. Likely due to Community acquired pneumonia. GI prophylaxis: I will add a PPI. DVT prophylaxis: SCDs, no heparin or Lovenox given that the patient is on Brilinta. Pt Condition on Discharge: Stable Discharge Disposition: Discharge Home Discharge Time: <= 30 minutes Discharge Instructions DIET: Follow Instructions for: Heart Healthy Diet, Diabetic Diet Activities you can perform: Regular-No Restrictions Activities to Avoid: Strenuous Activity Follow up Referrals: Cardiology - 1 Week with Trevor Melton MD Gastroenterology - 1 Week with Abby Nichole MD Nephrology - 1 Week with Timbo Castro MD PCP Follow-up - 2 Weeks with Davon Castellanos MD New Medications: Levofloxacin (Levaquin) 500 Mg Tab 500 MG PO Q48H Infection #4 Ref 0 TAB Amlodipine (Norvasc) 10 Mg Tab 10 MG PO DAILY Blood Pressure Management #30 TAB Carvedilol (Coreg) 12.5 Mg Tab 12.5 MG PO Q12HR Blood Pressure Management #62 TAB Furosemide (Furosemide) 20 Mg Tab 20 MG PO DAILY Shortness of Breath #30 TAB Lisinopril (Lisinopril) 5 Mg Tab 5 MG PO DAILY Blood Pressure Management #31 TAB Ticagrelor (Brilinta) 90 Mg Tab 90 MG PO BID CAD #62 Ref 1 TAB ([Aspirin Chew]) 81 MG CHEW 81 MG CHEW DAILY cad #30 TAB.CHEW Discontinued Medications: Aspirin DR (Aspir-Low) 81 Mg TabGanesh Cantu MD Sep 26, 2016 10:07
[2016-09-26] MEDS ORDERED: LISI-519 PO (10:48)
[2016-09-26] MEDS ORDERED: LISI10TA3 PO (10:50)
[2016-09-26 12:00] VITALS: BP 134/82; PULSE 69; RESP 18; TEMP 98.1; O2SAT 100
[2016-09-26] MEDS ORDERED: LEVOFLOXACIN 750 MG TAB PO SCH (16:00)
[2016-09-29 09:53] LABS: HCV RNA PCR IU/ML LESS THAN 15 IU/mL (()); HCV RNA PCR LOGIU/ML LESS THAN 1.18 (())
== END 2016-09-26 13:09 | disposition home or self-care (01) | DRG 280 ==
LOC: NEPC 05:55 → NEDA 08:05 → HCIS 14:30 → N04A 09-26 01:14
PROVIDERS: ADMIT Hospitalist; ATTEND Hospitalist
PROC: B2111ZZ Fluoroscopy of Multiple Coronary Arteries using Low Osmolar Contrast (ICD-10-PCS; 2016-09-22)
PROC: B2171ZZ Fluoroscopy of Right Internal Mammary Bypass Graft using Low Osmolar Contrast (ICD-10-PCS; 2016-09-22)
PROC: B2131ZZ Fluoroscopy of Multiple Coronary Artery Bypass Grafts using Low Osmolar Contrast (ICD-10-PCS; 2016-09-22)
PROC: B2151ZZ Fluoroscopy of Left Heart using Low Osmolar Contrast (ICD-10-PCS; 2016-09-22)
PROC: B41F1ZZ Fluoroscopy of Right Lower Extremity Arteries using Low Osmolar Contrast (ICD-10-PCS; 2016-09-22)
PROC: 4A023N7 Measurement of Cardiac Sampling and Pressure, Left Heart, Percutaneous Approach (ICD-10-PCS; principal; 2016-09-22 10:00)
DX: I21.4 Non-ST elevation (NSTEMI) myocardial infarction (principal); I50.43 Acute on chronic combined systolic (congestive) and diastolic (congestive) heart failure; J18.9 Pneumonia, unspecified organism; N17.9 Acute kidney failure, unspecified; T82.858A Stenosis of other vascular prosthetic devices, implants and grafts, initial encounter; E11.22 Type 2 diabetes mellitus with diabetic chronic kidney disease; K76.1 Chronic passive congestion of liver; I16.1 Hypertensive emergency; J98.11 Atelectasis; E11.65 Type 2 diabetes mellitus with hyperglycemia; Z95.1 Presence of aortocoronary bypass graft; I25.10 Atherosclerotic heart disease of native coronary artery without angina pectoris; Z79.82 Long term (current) use of aspirin; Z87.891 Personal history of nicotine dependence; R00.0 Tachycardia, unspecified; N18.9 Chronic kidney disease, unspecified; I12.9 Hypertensive chronic kidney disease with stage 1 through stage 4 chronic kidney disease, or unspecified chronic kidney disease; R74.0 Nonspecific elevation of levels of transaminase and lactic acid dehydrogenase [LDH]; I08.3 Combined rheumatic disorders of mitral, aortic and tricuspid valves; Y83.8 Other surgical procedures as the cause of abnormal reaction of the patient, or of later complication, without mention of misadventure at the time of the procedure; Y92.9 Unspecified place or not applicable; Y71.2 Prosthetic and other implants, materials and accessory cardiovascular devices associated with adverse incidents; G44.40 Drug-induced headache, not elsewhere classified, not intractable; T46.3X5A Adverse effect of coronary vasodilators, initial encounter; Y92.239 Unspecified place in hospital as the place of occurrence of the external cause; I73.9 Peripheral vascular disease, unspecified; I25.5 Ischemic cardiomyopathy; I70.201 Unspecified atherosclerosis of native arteries of extremities, right leg; R76.8 Other specified abnormal immunological findings in serum
CPT/HCPCS: 71010; 71020; 76705; 76937; 78582; 80048; 80053; 80061; 80074; 80076; 81001; 82550; 82552; 82948; 83036; 83880; 84484; 85025; 85379; 85610; 85730; 87522; 93005; 93306; 93454; 93567; 94150; 96361; 96374; 96375; A9540; A9567; C1769; C1893; J0360; J1644; J1815; J1956; J2250; J2270; J2405; J3010; J7030; J7040; Q9967

== ENCOUNTER 2016-09-26 20:40 | Emergency (ER) | payer MEDICARE ==
[~2016-09-26] VITALS: Ht 167.6 cm; Wt 85.0 kg
[~2016-09-26 20:40] MED LIST: AMLO10 PO; Aspirin Chew CHEW; BRIL90TA PO; CARV12.5 PO; FURO20TA PO; LEVA500T PO; LISI-519 PO; LISI10TA3 PO
[2016-09-26 20:41] VITALS: BP 190/93; PULSE 83; RESP 16; TEMP 98.6; O2SAT 95
[2016-09-26 22:28] VITALS: BP 178/88; PULSE 80; RESP 16; TEMP 98; O2SAT 95
== END 2016-09-26 23:59 | disposition left against medical advice (07) ==
LOC: NED 20:40
DX: Z53.21 Procedure and treatment not carried out due to patient leaving prior to being seen by health care provider (principal)
CPT/HCPCS: 99281